=== PATIENT | female | born 1995 | race Caucasian/White ===

== ENCOUNTER 2016-09-13 08:26 | Inpatient (IN) | payer OTHER ==
[2016-09-13 08:32] VITALS: BMI 34.7
--- NOTE | 2016-09-13 08:40 | PDOC ---
History of Present Illness - General History Source: Patient Exam Limitations: No Limitations - History of Present Illness Initial Comments: 09/13/16 09:04 The patient is a 21 year old female, A1 (ectopic) with a significant past medical history of asthma, who presents to the emergency department with right flank pain around 2 am this morning. She describes her pain as suddenly onset, waking her up from sleep, sharp / stabbing sensation that is constant in nature. She notes that the pain waxes and wains in severity, rating it a 9/10 at its worse and a 3/10 at is best. She also notes that movement and taking a deep breath exacerbates her pain. She also reports nausea and multiple episodes of vomit associated with her chief complaint, that is nonbloody and nobilious in nature. The patient denies chest pain, shortness of breath, headache and dizziness. Denies fever, chills, diarrhea and constipation. Denies dysuria, frequency, urgency and hematuria. LMP: 08/28/2016 Allergies: Seasonal allergies Past surgical history: . Social history: Cigarette use (20 daily). No alcohol or drug use reported <Nima Pichardo - Last Filed: 09/13/16 11:58> <Joshua Fountain - Last Filed: 09/13/16 15:31> - General Chief Complaint: Pain, Acute Stated Complaint: RT SIDE PAIN Time Seen by Provider: 09/13/16 08:38 Past History <Nima Pichardo - Last Filed: 09/13/16 11:58> - Past Medical History Asthma: Yes - Surgical History Abdominal Surgery: Yes - Reproductive History (#): 2 Para: 1 - Immunization History Td Vaccination: Yes Immunization Up to Date: Yes - Psycho/Social/Smoking Cessation Hx Anxiety: No Suicidal Ideation: No Smoking Status: Yes Smoking History: Current every day smoker Have you smoked in the past 12 months: Yes Number of Cigarettes Smoked Daily: 20 Information on smoking cessation initiated: No 'Breaking Loose' booklet given: 12/18/15 Hx Alcohol Use: No Drug/Substance Use Hx: No Substance Use Type: None <Joshua Fountain - Last Filed: 09/13/16 15:31> - Past Medical History Allergies/Adverse Reactions: Allergies Allergy/AdvReac Type Severity Reaction Status Date / Time No Known Allergies Allergy Verified 09/13/16 08:32 Home Medications: Ambulatory Orders NK [No Known Home Medication] 12/18/15 Review of Systems - Review of Systems Able to Perform ROS?: Yes Constitutional: No: Chills, Fever Respiratory: No: Cough, Shortness of Breath Cardiac (ROS): No: Chest Pain ABD/GI: Yes: Nausea, Vomiting. No: Constipated, Diarrhea : Yes: Flank Pain. No: Dysuria, Frequency, Hematuria Integumentary: No: Rash All Other Systems: Reviewed and Negative <Joshua Fountain - Last Filed: 09/13/16 15:31> *Physical Exam - Vital Signs Last Vital Signs Temp Pulse Resp BP Pulse Ox 98 F 96 H 18 115/63 100 09/13/16 08:28 09/13/16 08:28 09/13/16 08:28 09/13/16 08:28 09/13/16 08:28 - Physical Exam Comments: 09/13/16 09:05 GENERAL: The patient is awake, alert, and fully oriented, in no acute distress. HEAD: Normal with no signs of trauma. EYES: Pupils equal, round and reactive to light, extraocular movements intact, sclera anicteric, conjunctiva clear with no pallor. ENT: Ears normal, nares patent, oropharynx clear without exudates. Moist mucous membranes. NECK: Normal range of motion, supple without lymphadenopathy, JVD, or masses. LUNGS: Breath sounds equal, clear to auscultation bilaterally. No wheeze/ crackles. HEART: Regular rate and rhythm, normal S1 and S2 without murmur or rub. ABDOMEN: (+) Diffused tenderness aroung the right abdomen, negative McBurneys sign. Soft/nondistended. BS wnl. No guarding or rebound. No palpable masses. No hepatosplenomegaly. MUSCULOSKELETAL: (+) Positive right CVA tenderness EXTREMITIES: Normal range of motion, no edema. No clubbing or cyanosis. No cords , erythema, or tenderness. NEUROLOGICAL: Cranial nerves II through XII grossly intact. Normal speech, normal gait. PSYCH: Normal mood, normal affect. SKIN: Warm, Dry, normal turgor, no rashes or lesions noted. <Nima Pichardo - Last Filed: 09/13/16 11:58> - Vital Signs Last Vital Signs Temp Pulse Resp BP Pulse Ox 98 F 96 H 18 115/63 100 09/13/16 08:28 09/13/16 08:28 09/13/16 08:28 09/13/16 08:28 09/13/16 08:28 <Joshua Fountain - Last Filed: 09/13/16 15:31> ED Treatment Course - LABORATORY CBC & Chemistry Diagram: 09/13/16 09:10 09/13/16 09:10 - RADIOLOGY Radiograph Interpretation: 09/13/16 12:00 CT abdomen and pelvis without contrast Reviewed by: Dr. Ray Desouza Impression: There is a gallstone within the gallbladder. No evidence of urinary tract calculi, mass lesions or obstructive uropathy. No evidence of acute pathology within the abdomen or pelvis. <Nima Pichardo - Last Filed: 09/13/16 11:58> - LABORATORY CBC & Chemistry Diagram: 09/13/16 09:10 09/13/16 09:10 <AlfonsodrissJoshua - Last Filed: 09/13/16 15:31> Medical Decision Making - Medical Decision Making 09/13/16 11:58 Upon reevaluation the pain is now in the right upper quadrant and right mid quadrant with tenderness to the right upper quadrant. Will do bedside ultrasound as per CT abdomen findings. <Nima Pichardo - Last Filed: 09/13/16 11:58> - Medical Decision Making 09/13/16 08:48 A portion of this note was documented by scribe services under my direction. I have reviewed the details of the note, within reason, and agree with the documentation with the following case summary and management plan written by me. Healthy 21-year-old female LMP 08/28 presents with acute onset of right flank pain that awoke her from sleep around 2 AM. Constant pain, waxing and waning in severity, began in the right flank and now radiating toward the groin. No associated urinary complaints, positive associated nonbloody nonbilious vomiting , had normal nonbloody bowel movement last night. Pain with deep inspiration but no chest pain or shortness of breath or palpitations, no signs or symptoms of DVT. She is a smoker, she is on oral contraceptives. Vital signs as noted, heart rate now 84 Comfortable at this time, well-appearing and ambulating in the ED Heart and lungs are clear + R cvat and R sided lateral tenderness with some guarding, no rebound. no RLQ or RUQ ttp no edema/calf ttp 21-year-old female with acute onset of right flank pain now radiating to the groin, associated nausea and vomiting. Presentation seems most consistent with or GI etiology, question renal colic versus infection, less likely colitis or biliary colic. Low suspicion for cardiopulmonary process, despite being a smoker on OCPs this is not clinically consistent with PE. Check labs, urinalysis, urine Pain control, nausea control, IV fluids Will likely require imaging. No known history of renal colic reassess 09/13/16 10:02 White count 11.2, chemistries within normal limits including LFTs and lipase. Urinalysis with 1+ blood, 2 red blood cells, 5 white blood cells, no . Will do CT imaging to rule out stone, reassess. 09/13/16 12:16 CT shows a single gallstone but no other pathology within the abdomen or pelvis , no CT evidence of cholecystitis. On re-evaluation, the pain has not moved to the RUQ/R middle abdomen. On bedside ultrasound, there is a visible gallstone with positive sonographic Lugo's. Will obtain official right upper quadrant ultrasound 09/13/16 14:20 Official ultrasound confirms stone with thick gallbladder wall, ? HIDA if question if cholecystitis remains. Pt still in pain but not wanting to stay for more evaluation, but ultimately failed PO trial and remained tender with guarding in the RUQ. Will admit for pain control of intractable biliary colic, further imaging, and surgical consultation. Pt does not have established PMD (in transition to Dr. Rehman) so will admit to hospitalist. 09/13/16 15:29 Accepted for inpatient med/surg by Dr. Valencia, will consult gen surg. <Joshua Fountain - Last Filed: 09/13/16 15:31> *DC/Admit/Observation/Transfer - Attestations Scribe Attestion: 09/13/16 09:06 Documentation prepared by Nima Pichardo, acting as medical transcription for Joshua Fountain MD <Nima Pichardo - Last Filed: 09/13/16 11:58> - Discharge Dispostion Admit: Yes <Joshua Fountain - Last Filed: 09/13/16 15:31> Diagnosis at time of Disposition: Right flank pain, Biliary colic - Discharge Dispostion Condition at time of disposition: Fair - Referrals Referrals: Kristofer Rehman MD [Primary Care Provider] -
[2016-09-13] MEDS ORDERED: ONDANSETRON 4 MG/2 ML VIAL IVPB ONE (08:46)
[2016-09-13] MEDS ORDERED: HYDROmorphone HCL CARPU-JECT 1 MG/1 ML DISP.SYRIN IVPUSH ONE (08:46)
[2016-09-13] MEDS ORDERED: SODIUM CHLORIDE 1,000 ML IV ONE (08:46)
[2016-09-13] MEDS ORDERED: HYDROmorphone HCL CARPU-JECT 1 MG/1 ML DISP.SYRIN ONE (09:10)
[2016-09-13] MEDS ORDERED: ONDANSETRON 4 MG/2 ML VIAL ONE (09:11)
[2016-09-13 09:18] LABS: BASOPHIL 0.8 % (0-2.0); EOSINOPHIL 0.5 % (0-4.5); MCHC 33.9 g/dl (32.0-36.0); MEAN CELL VOLUME 82.6 fl (80-96); MEAN PLT VOLUME 7.8 fl (7.5-11.1); NEUTROPHILS 81.1 % (42.8-82.8); PLATELET COUNT 266 K/MM3 (134-434); RDW 13.1 % (11.6-15.6); WHITE BLOOD COUNT 11.2 K/mm3 (4.0-10.0)
[2016-09-13 09:24] LABS: URINE APPEARANCE CLEAR; URINE BILIRUBIN NEGATIVE (NEGATIVE); URINE COLOR YELLOW; URINE GLUCOSE (UA) NEGATIVE (NEGATIVE); URINE KETONE NEGATIVE (NEGATIVE); URINE NITRITE NEGATIVE (NEGATIVE); URINE PROTEIN NEGATIVE (NEGATIVE); URINE UROBILINOGEN NEGATIVE E.U./dl (0.2-1.0)
[2016-09-13 09:25] LABS: URINE BLOOD 1+ (NEGATIVE); URINE LEUK ESTERASE 1+ (NEGATIVE)
[2016-09-13 09:27] LABS: URINE MUCUS RARE; URINE RBC 2 /hpf (0-3); URINE WBC 5 /hpf (3-5)
[2016-09-13 09:35] LABS: ALBUMIN 4.2 g/dl (3.4-5.0); ANION GAP 9 (8-16); CALCIUM 9.7 mg/dL (8.5-10.1); CO2 27 mmol/L (21-32); CREATININE 0.9 mg/dL (0.55-1.02); GLUCOSE,RANDOM 100 mg/dL (74-106); SGOT/AST 13 U/L (15-37)
[2016-09-13 09:51] LABS: ALK PHOS 70 U/L (45-117); BILIRUBIN,TOTAL 0.8 mg/dL (0.2-1.0); SGPT/ALT 20 U/L (12-78); TOT PROT 7.2 g/dl (6.4-8.2)
[2016-09-13] MEDS ORDERED: traMADol HCL 50 MG TABLET PO ONE (13:21)
[2016-09-13] MEDS ORDERED: traMADol HCL 50 MG TABLET ONE (13:32)
[2016-09-13] MEDS ORDERED: PIPERACILLIN/TAZOB 3.375 GM/50 ML PRE-DOCKED IVPB ONE (16:29)
[2016-09-13] MEDS ORDERED: PIPERACILLIN/TAZOB 3.375 GM 50 ML IVPB ONE (16:38)
--- NOTE | 2016-09-13 17:30 | PN ---
Teaching Attending Note Name of Resident: Sarai Martinez ATTENDING PHYSICIAN STATEMENT I saw and evaluated the patient. I reviewed the resident's note and discussed the case with the resident. I agree with the resident's findings and plan as documented. SUBJECTIVE: This is a 21 year old woman with a history of asthma, ectopic who presents to the ER complaining of RUQ abdominal pain that awoke her from sleep around 2am this morning. She has nausea nad vomiting and denies fever and chills. OBJECTIVE: Vital Signs Period Temp Pulse Resp BP Sys/Osborn Pulse Ox Last 24 Hr 98 F 67-96 16-18 110-119/60-78 98-100 HEART: S1S2, RRR LUNGS: Clear ABDOMEN: Soft, RUQ tenderness, non-distended, normal BS EXTREMITIES: No edema ASSESSMENT AND PLAN: This is a 21 year old woman with a history of asthma, ectopic who presented to the ER with RUQ abdominal pain that awoke her from sleep around 2am this morning. US showed cholelithiasis with thickening of the gallbladder wall. 1. Acute cholecystitis - NPO - IV fluid - Levaquin, Flagyl - Morphine as needed for pain - Zofran as needed for nausea - Surgery consult 2. Asthma - Stable
[2016-09-13] MEDS ORDERED: ONDANSETRON 4 MG/2 ML VIAL IVPB PRN (17:52)
[2016-09-13] MEDS ORDERED: morphine CARPU-JECT 2 MG/1 ML DISP.SYRIN IVPUSH PRN (17:52)
[2016-09-13] MEDS ORDERED: LEVOFLOXACIN 500 MG IVPB 100 ML IVPB ONE ×2 (17:58→18:12)
[2016-09-13] MEDS: SODIUM CHLORIDE 1,000 ML IV SCH ×2 (18:11→20:59)
[2016-09-13] MEDS ORDERED: METRONIDAZOLE 500 MG PREMIXED 100 ML IVPB ONE (18:12)
--- NOTE | 2016-09-13 18:43 | HP ---
CHIEF COMPLAINT: Right side abdominal pain PCP: Dr. Kristofer Rheman HISTORY OF PRESENT ILLNESS: Patient is a 21 year old female with a PMHx of asthma who presented with right upper quadrant abdominal pain that started at 0230 last night. Patient reports the pain was sudden, waking her up from sleep. The pain was described as a stabbing pain radiating to the right lower back with no alleviating factors. The pain was constant and exacerbated with any type of movement. Severity of the pain was 9/10 at it's worse. Pain is associated with nausea and nonbloody nonbilious vomiting x4. Patient reports never having symptoms like this except for abdominal cramping. She reports no change in her diet and no recent weight loss. She denies any NSAID use or recent travel. Otherwise, patient denies diarrhea, constipation, change in bowel habits, hematuria, melena, dysuria, urinary frequency or urgency, flank pain, shortness of breath, chest pain, palpitations, headache, dizziness. ER course was notable for: (1) U/S (2) Zosyn IV (3) Ultram and IV Fluids Recent Travel: Denies PAST MEDICAL HISTORY: Asthma PAST SURGICAL HISTORY: Social History: Smokin PPD for >5 years Alcohol: Denies Drugs: Denies Family History: Denies Allergies: No Known Allergies Allergy (Verified 09/13/16 08:32) HOME MEDICATIONS: Home Medications Medication Instructions Recorded NK [No Known Home Medication] 12/18/15 REVIEW OF SYSTEMS CONSTITUTIONAL: Absent: fever, chills, diaphoresis, generalized weakness, malaise, loss of appetite, weight change HEENT: Absent: rhinorrhea, nasal congestion, throat pain, throat swelling, difficulty swallowing, mouth swelling, ear pain, eye pain, visual changes CARDIOVASCULAR: Absent: chest pain, syncope, palpitations, irregular heart rate, lightheadedness , peripheral edema RESPIRATORY: Absent: cough, shortness of breath, dyspnea with exertion, orthopnea, wheezing, stridor, hemoptysis GASTROINTESTINAL: abdominal pain, nausea, vomiting Absent: abdominal distension, diarrhea, constipation, melena, hematochezia GENITOURINARY: Absent: dysuria, frequency, urgency, hesitancy, hematuria, flank pain, genital pain MUSCULOSKELETAL: back pain Absent: myalgia, arthralgia, joint swelling, neck pain SKIN: Absent: rash, itching, pallor HEMATOLOGIC/IMMUNOLOGIC: Absent: easy bleeding, easy bruising, lymphadenopathy, frequent infections ENDOCRINE: Absent: unexplained weight gain, unexplained weight loss, heat intolerance, cold intolerance NEUROLOGIC: Absent: headache, focal weakness or paresthesias, dizziness, unsteady gait, seizure, mental status changes, bladder or bowel incontinence PSYCHIATRIC: Absent: anxiety, depression, suicidal or homicidal ideation, hallucinations. Vital Signs - 24 hr 09/13/16 09/13/16 09/13/16 08:28 11:58 13:37 Temperature 98 F Pulse Rate 96 H Pulse Rate [ 81 67 Apical] Respiratory 18 17 16 Rate Blood Pressure 115/63 Blood Pressure 110/60 119/78 [Right Arm] O2 Sat by Pulse 100 99 98 Oximetry (%) 09/13/16 18:45 Temperature 98.2 F Pulse Rate Pulse Rate [ 61 Apical] Respiratory 18 Rate Blood Pressure Blood Pressure 106/65 [Right Arm] O2 Sat by Pulse 97 Oximetry (%) PHYSICAL EXAMINATION GENERAL: Awake, alert, and fully oriented, in no acute distress. HEAD: Normal with no signs of trauma. EYES: Pupils equal, round and reactive to light, extraocular movements intact, sclera anicteric, conjunctiva clear. EARS, NOSE, THROAT: Oropharynx clear without exudates. Moist mucous membranes. NECK: Normal range of motion, supple without lymphadenopathy. LUNGS: Breath sounds equal, clear to auscultation bilaterally. No wheezes, and no crackles. No accessory muscle use. HEART: Regular rate and rhythm, normal S1 and S2 without murmur, rub or gallop. ABDOMEN: Soft, tenderness upon palpation of right upper quadrant with mild right lower tenderness. (+) guarding, (+) Lugo's sign. No hepatomegaly or splenomegaly. MUSCULOSKELETAL: No CVA tenderness. UPPER EXTREMITIES: No peripheral edema. LOWER EXTREMITIES: No peripheral edema. NEUROLOGICAL: Normal speech. Normal gait. No facial drooping SKIN: Warm, dry, normal turgor, no rashes or lesions noted, normal capillary refill. Laboratory Results - last 24 hr 09/13/16 09/13/16 09/13/16 08:56 09:10 09:10 WBC 11.2 H RBC 4.97 Hgb 13.9 Hct 41.0 MCV 82.6 MCHC 33.9 RDW 13.1 Plt Count 266 MPV 7.8 Neutrophils % 81.1 Lymphocytes % 13.3 D Monocytes % 4.3 Eosinophils % 0.5 Basophils % 0.8 Sodium 141 Potassium 4.3 Chloride 105 Carbon Dioxide 27 Anion Gap 9 BUN 10 Creatinine 0.9 D Creat Clearance w eGFR > 60 Random Glucose 100 D Calcium 9.7 Total Bilirubin 0.8 AST 13 L ALT 20 Alkaline Phosphatase 70 Total Protein 7.2 Albumin 4.2 Lipase 128 Urine Color Yellow Urine Appearance Clear Urine pH 6.0 Urine Protein Negative Urine Glucose (UA) Negative Urine Ketones Negative Urine Blood 1+ H Urine Nitrite Negative Urine Bilirubin Negative Urine Urobilinogen Negative Ur Leukocyte Esterase 1+ H Urine RBC 2 Urine WBC 5 Ur Epithelial Cells Rare Urine Mucus Rare Urine HCG, Qual Negative U/S (09/13/16): Cholelithiasis with thick walled gallbladder. Abdominal CT (09/13/16): No evidence of acute pathology ASSESSMENT/PLAN: Patient is a 21 year old female with a PMHx of asthma who presented for RUQ abdominal pain that began suddenly. U/S done and patient was found to have possible acute cholecystitis. Patient admitted for further monitoring and management. Acute Cholecystitis -U/S revealed cholelithiasis -CT Abdo negative -HIDA scan ordered -Levofloxacin 500mg IV daily ordered -Flagyl 500mg Q8H ordered -IV Normal Saline @125mls/hr -Morphine 2mg IV Q4H PRN -Zofran 4mg PRN -NPO -Surgery consult placed -Will likely need surgery once HIDA scan complete Asthma-Controlled -On no home medication F/E/N -IV NS @125mls/hr -Electrolytes wnl -NPO Prophylaxis -Low risk. EAM. SCD's for DVT Disposition -HIDA scan pending. Surgery consult placed Visit type - Emergency Visit Emergency Visit: Yes ED Registration Date: 09/13/16 Care time: The patient presented to the Emergency Department on the above date and was hospitalized for further evaluation of their emergent condition. - New Patient This patient is new to me today: Yes Date on this admission: 09/14/16 - Critical Care Critical Care patient: No
[2016-09-13] MEDS: morphine CARPU-JECT 2 MG/1 ML DISP.SYRIN IVPUSH PRN (21:00)
[2016-09-13] MEDS: METRONIDAZOLE 500 MG PREMIXED 100 ML IVPB SCH (21:00)
[2016-09-14] MEDS ORDERED: ONDANSETRON 4 MG/2 ML VIAL IVPUSH ONE (00:07)
[2016-09-14] MEDS: METRONIDAZOLE 500 MG PREMIXED 100 ML IVPB SCH ×2 (01:51→10:18)
[2016-09-14] MEDS: morphine CARPU-JECT 2 MG/1 ML DISP.SYRIN IVPUSH PRN ×4 (01:57→23:58)
[2016-09-14] MEDS: SODIUM CHLORIDE 1,000 ML IV SCH (06:26)
[2016-09-14 07:44] LABS: MCH 28.1 pg (25.7-33.7); MCHC 33.9 g/dl (32.0-36.0); MEAN CELL VOLUME 83.1 fl (80-96); MEAN PLT VOLUME 7.8 fl (7.5-11.1); PLATELET COUNT 197 K/MM3 (134-434); WHITE BLOOD COUNT 6.3 K/mm3 (4.0-10.0)
[2016-09-14 08:03] LABS: ALK PHOS 57 U/L (45-117); ANION GAP 8 (8-16); BILIRUBIN,TOTAL 1.1 mg/dL (0.2-1.0); CALCIUM 8.2 mg/dL (8.5-10.1); CO2 26 mmol/L (21-32); CREATININE 0.8 mg/dL (0.55-1.02); GLUCOSE,RANDOM 89 mg/dL (74-106); SGOT/AST 10 U/L (15-37); SGPT/ALT 15 U/L (12-78); TOT PROT 5.3 g/dl (6.4-8.2)
[2016-09-14 08:11] LABS: INR 1.21 (0.82-1.09); PROTHROMBIN TIME (PATIENT) 13.4 SEC (9.98-11.88)
--- NOTE | 2016-09-14 08:23 | PN ---
Physical Exam: SUBJECTIVE: Patient seen and examined by me at bedside. No overnight events noted. Patient reports her abdominal pain is better than yesterday and is no longer in the left lower quadrant area but remains in the right upper quadrant. Otherwise, patient denies fever, chills, shortness of breath, chest pain, palpitations, dizziness, diarrhea, constipation. OBJECTIVE: Vital Signs Period Temp Pulse Resp BP Sys/Osborn Pulse Ox Last 24 Hr 97.7 F-98.2 F 57-91 18-18 102-116/46-67 97-99 GENERAL: Awake, alert, and fully oriented, in no acute distress. LUNGS: Breath sounds equal, clear to auscultation bilaterally. No wheezes, and no crackles. No accessory muscle use. HEART: Regular rate and rhythm, normal S1 and S2 without murmur, rub or gallop. ABDOMEN: Soft, tenderness upon palpation of right upper quadrant (+) guarding, ( +) Lugo's sign. EXTREMITIES: No peripheral edema. NEUROLOGICAL: Normal speech. No facial drooping Laboratory Results - last 24 hr 09/14/16 06:52 WBC 6.3 D RBC 4.15 Hgb 11.7 D Hct 34.5 D MCV 83.1 MCHC 33.9 RDW 13.0 Plt Count 197 D MPV 7.8 Active Medications Generic Name Dose Route Start Last Admin Trade Name Freq PRN Reason Stop Dose Admin Sodium Chloride 1,000 mls @ 125 mls/hr 09/13/16 18:00 09/14/16 06:26 Normal Saline - IV 125 mls/hr ASDIR YVETTE Administration Metronidazole 100 mls @ 100 mls/hr 09/13/16 18:00 09/14/16 01:51 Flagyl 500mg Premixed Ivpb - IVPB 100 mls/hr Q8H-IV YVETTE Administration Levofloxacin 100 mls @ 100 mls/hr 09/14/16 10:00 Levaquin 500 Mg Premixed Ivpb - IVPB DAILY YVETTE Morphine Sulfate 2 mg 09/13/16 18:00 09/14/16 01:57 Morphine Injection - IVPUSH 2 mg Q4H PRN Administration PAIN U/S (09/13/16): Cholelithiasis with thick walled gallbladder. Abdominal CT (09/13/16): No evidence of acute pathology ASSESSMENT/PLAN: Patient is a 21 year old female with a PMHx of asthma who presented for RUQ abdominal pain that began suddenly. U/S done and patient was found to have possible acute cholecystitis. Patient admitted for further monitoring and management. Acute Cholecystitis -U/S revealed cholelithiasis -CT Abdo negative -Continue Levofloxacin 500mg IV daily day #2 -Continue Flagyl 500mg Q8H ordered day #2 -IV Normal Saline @125mls/hr -Morphine 2mg IV Q4H PRN -Zofran 4mg PRN -NPO -Scheduled for surgery this afternoon Asthma-Controlled -On no home medication F/E/N -IV NS @125mls/hr -Electrolytes wnl -NPO Prophylaxis -Low risk. EAM. SCD's for DVT Disposition -Scheduled for surgery this afternoon. Depending on post op, patient might be staying one more night. Visit type - Emergency Visit Emergency Visit: Yes ED Registration Date: 09/13/16 Care time: The patient presented to the Emergency Department on the above date and was hospitalized for further evaluation of their emergent condition. - New Patient This patient is new to me today: No - Critical Care Critical Care patient: No
[2016-09-14] MEDS ORDERED: LEVOFLOXACIN 500 MG IVPB 100 ML IVPB SCH (10:00)
--- NOTE | 2016-09-14 10:18 | CONSULT ---
- Consultation REQUESTING PROVIDER: Dr. Avila CONSULT REQUEST: We have been asked to surgically evaluate this patient for gallbladder stones. PCP:Uziel Valencia MD HISTORY OF PRESENT ILLNESS: 21 yo female with complaints of nausea and emesis( yellowish), upper abd pain. Her symptoms have improved since admission. The patient was unaware that she had gallstones but did have intermittent pain in the past which resolved on its own and never has had a workup for this pain. She desnies any fever, chills dysuria/hematuria. PMHx: ashtma as a child PSHx: c section Home Medications Medication Instructions Recorded NK [No Known Home Medication] 12/18/15 Allergies Allergy/AdvReac Type Severity Reaction Status Date / Time No Known Allergies Allergy Verified 09/13/16 08:32 REVIEW OF SYSTEMS: CONSTITUTIONAL: Absent: fever, chills CARDIOVASCULAR: Absent: chest pain, syncope, palpitations, irregular heart rate RESPIRATORY: Absent: cough, shortness of breath GASTROINTESTINAL: Absent: abdominal pain to upper abd with nausea and emesis GENITOURINARY: Absent: dysuria, hematuria MUSCULOSKELETAL: Absent: joint swelling, back pain, neck pain HEMATOLOGIC/IMMUNOLOGIC: Absent: easy bleeding, easy bruising NEUROLOGIC: Absent: headache, paresthesias, dizziness PSYCHIATRIC: Absent: anxiety, depression, suicidal or homicidal ideation, hallucinations. PHYSICAL EXAM: GENERAL: Awake, alert HEAD: Normal with no signs of trauma. EYES: sclera anicteric, conjunctiva clear. NECK: Normal ROM, supple without lymphadenopathy, JVD, or masses. LUNGS: Clear to auscultation bilat anteriorly. No wheezes, and no crackles. No accessory muscle use. HEART: Regular rate and rhythm. No murmurs ABDOMEN: Soft, not distended, mild RUQ tenderness to palpation. No rebound. MUSCULOSKELETAL: Normal ROM at all joints. No bony deformities or tenderness. No CVA tenderness. UPPER EXTREMITIES: 2+ pulses, warm, well-perfused. No cyanosis. Cap refill <2 seconds. No peripheral edema. LOWER EXTREMITIES: 2+ pulses, warm, well-perfused. No calf tenderness. No peripheral edema. NEUROLOGICAL: Normal speech, gait not observed. PSYCH: Cooperative. Good eye contact. Appropriate mood and affect. Vital Signs Temperature 98 F 09/14/16 08:38 Pulse Rate 61 09/14/16 08:38 Respiratory Rate 20 09/14/16 08:38 Blood Pressure 108/57 09/14/16 08:38 O2 Sat by Pulse Oximetry (%) 99 09/13/16 20:30 Lab Results WBC 6.3 K/mm3 (4.0-10.0) D 09/14/16 06:52 RBC 4.15 M/mm3 (3.60-5.2) 09/14/16 06:52 Hgb 11.7 GM/dL (10.7-15.3) D 09/14/16 06:52 Hct 34.5 % (32.4-45.2) D 09/14/16 06:52 MCV 83.1 fl (80-96) 09/14/16 06:52 MCHC 33.9 g/dl (32.0-36.0) 09/14/16 06:52 RDW 13.0 % (11.6-15.6) 09/14/16 06:52 Plt Count 197 K/MM3 (134-434) D 09/14/16 06:52 Sodium 144 mmol/L (136-145) 09/14/16 06:52 Potassium 3.9 mmol/L (3.5-5.1) 09/14/16 06:52 Chloride 110 mmol/L (98-107) H 09/14/16 06:52 Carbon Dioxide 26 mmol/L (21-32) 09/14/16 06:52 Anion Gap 8 (8-16) 09/14/16 06:52 BUN 8 mg/dL (7-18) 09/14/16 06:52 Creatinine 0.8 mg/dL (0.55-1.02) 09/14/16 06:52 Random Glucose 89 mg/dL (74-106) 09/14/16 06:52 Calcium 8.2 mg/dL (8.5-10.1) L 09/14/16 06:52 INR 1.21 (0.82-1.09) H 09/14/16 06:52 CMP Sodium 144 mmol/L (136-145) 09/14/16 06:52 Potassium 3.9 mmol/L (3.5-5.1) 09/14/16 06:52 Chloride 110 mmol/L (98-107) H 09/14/16 06:52 Carbon Dioxide 26 mmol/L (21-32) 09/14/16 06:52 Anion Gap 8 (8-16) 09/14/16 06:52 BUN 8 mg/dL (7-18) 09/14/16 06:52 Creatinine 0.8 mg/dL (0.55-1.02) 09/14/16 06:52 Creat Clearance w eGFR > 60 (>60) 09/14/16 06:52 Random Glucose 89 mg/dL (74-106) 09/14/16 06:52 Calcium 8.2 mg/dL (8.5-10.1) L 09/14/16 06:52 Total Bilirubin 1.1 mg/dL (0.2-1.0) H D 09/14/16 06:52 AST 10 U/L (15-37) L D 09/14/16 06:52 ALT 15 U/L (12-78) D 09/14/16 06:52 Alkaline Phosphatase 57 U/L (45-117) 09/14/16 06:52 Total Protein 5.3 g/dl (6.4-8.2) L D 09/14/16 06:52 Albumin 3.0 g/dl (3.4-5.0) L D 09/14/16 06:52 Lipase 128 U/L (73-393) 09/13/16 09:10 US-cholelithiasis with thickened GB, no CBD diltation CT scan: no evidence of bowel obstrutction/collection/free air Problem List - Problems (1) Gallstones Assessment/Plan: pt with cholelithiasis, for lap milind today she remains npo with improved abd pain Continue IV abx D/w Elbert Bedoya bili slighty elevated with normal LFTS, no CBD diltation Code(s): K80.20 - CALCULUS OF GALLBLADDER W/O CHOLECYSTITIS W/O OBSTRUCTION Visit type - Case Type Case Type: ED Admission - Emergency Emergency Visit: Yes ED Registration Date: 09/13/16 Care time: The patient presented to the Emergency Department on the above date and was hospitalized for further evaluation of their emergent condition. - New patient This patient is new to me today: Yes Date on this admission: 09/14/16 - Critical Care Critical Care patient: No
--- NOTE | 2016-09-14 13:10 | PN ---
Teaching Attending Note Name of Resident: Sarai Martinez ATTENDING PHYSICIAN STATEMENT I saw and evaluated the patient. I reviewed the resident's note and discussed the case with the resident. I agree with the resident's findings and plan as documented. SUBJECTIVE: Abdominal pain and nausea are better. OBJECTIVE: Vital Signs Period Temp Pulse Resp BP Sys/Osborn Pulse Ox Last 24 Hr 97.7 F-98.2 F 57-91 16-20 102-119/46-78 97-99 HEART: S1S2, RRR LUNGS: Clear ABDOMEN: Obese, soft, RUQ tenderness, non-distended, normal BS EXTREMITIES: No edema ASSESSMENT AND PLAN: This is a 21 year old woman with a history of asthma, ectopic who presented to the ER with RUQ abdominal pain that awoke her from sleep around 2am this morning. US showed cholelithiasis with thickening of the gallbladder wall. 1. Acute cholecystitis - Continue NPO, IV fluid, Levaquin, Flagyl, morphine as needed for pain, Zofran as needed for nausea - Plan for lap milind today 2. Asthma - Stable 3. Obesity
[2016-09-14] MEDS ORDERED: MIDAZOLAM HCL 2 MG/2 ML SINGLE DOSE VIAL ONE (13:18)
--- NOTE | 2016-09-14 13:32 | PN ---
Progress Note (short form) - Note Progress Note: Attending Surgeon Patient seen and evaluated; concur w/ a/p as outlined by SEAMUS Caruos; consent obtained; r/b/t/a's d/w the patient who wishes to proceed. Kee Avila MD FACS
[2016-09-14] MEDS ORDERED: PROPOFOL 20 ML ONE (13:46)
[2016-09-14] MEDS ORDERED: ROCURONIUM BROMIDE 50 MG/5 ML VIAL ONE (13:46)
[2016-09-14] MEDS ORDERED: DEXAMETHASONE SOD PHOSPHATE 4 MG/1 ML VIAL ONE (14:04)
[2016-09-14] MEDS ORDERED: LIDOCAINE HCL 2% (20ML MULTI-DOSE VIAL) NR ONE (14:04)
[2016-09-14] MEDS ORDERED: BUPIVACAINE HCL/PF 0.5% (5MG/ML) 10 ML VIAL ONE (14:05)
[2016-09-14] MEDS ORDERED: GLYCOPYRROLATE 0.2 MG/1 ML VIAL ONE (14:40)
[2016-09-14] MEDS ORDERED: NEOSTIGMINE METHYLSULFATE 0.5 MG/ML - 10 ML MDV ONE (14:40)
[2016-09-14] MEDS ORDERED: BUPIVACAINE HCL/PF 0.5% (5MG/ML) 10 ML VIAL IJ ONE (14:43)
--- NOTE | 2016-09-14 15:03 | SURG ---
Surgery Poultry Scientist Note Poultry Scientist: Rajeev Connor PA-C Date of Service: 09/14/16 Diagnosis: cholecystitis / cholelithiasis Procedure: Laparoscopic cholecystectomy I was present for the entirety of the operative procedure. For further detail, please refer to operative report. Visit type - Case Type Case Type: ED Admission - Emergency Emergency Visit: Yes ED Registration Date: 09/13/16 Care time: The patient presented to the Emergency Department on the above date and was hospitalized for further evaluation of their emergent condition. - New patient This patient is new to me today: Yes Date on this admission: 09/14/16
--- NOTE | 2016-09-14 15:06 | OP ---
Operative Note - Note: Operative Date: 09/14/16 Pre-Operative Diagnosis: acute cholecystitis;cholelithiasis Operation: lap milind Findings: acute cholecystitis;cholelithiasis Post-Operative Diagnosis: Same as Pre-op Surgeon: Kee Avila Regulatory Specialist: Rajeev Connor Anesthesia: General Specimens Removed: gallbladder and contents Estimated Blood Loss (mls): 20
[2016-09-14] MEDS ORDERED: ACETAMINOPHEN 1000 MG/100 ML VIAL (NON FORMULARY) IVPB PRN (15:13)
[2016-09-14] MEDS ORDERED: SODIUM CHLORIDE 1,000 ML IV SCH (15:18)
[2016-09-14] MEDS ORDERED: ACETAMINOPHEN INJECTION 100 ML IVPB ONE (15:31)
[2016-09-14] MEDS ORDERED: ACETAMINOPHEN 1000 MG/100 ML VIAL (NON FORMULARY) IVPB ONE (15:39)
--- NOTE | 2016-09-15 07:52 | PN ---
Progress Note (short form) - Note Progress Note: POD #1 Alert. Doing well. No acute events since surgery per RN notes. C/o mild incisional tenderness but pain controlled well via PRN meds. She is OOB and ambulating unassisted. Tolerating PO clears. Using her incentive spirometer as directed. Denies n/v/f/c, CP or SOB. Last Vital Signs Temp Pulse Resp BP Pulse Ox 98.7 F 74 20 94/44 96 09/15/16 02:00 09/15/16 02:00 09/15/16 02:00 09/15/16 02:00 09/14/16 21:00 PE Gen: alert. NAD ABD: all surgical ports intact. No hematoma. Note: her right lateral port has 1 vertical mattress suture Problem List - Problems (1) Cholecystitis with cholelithiasis Assessment/Plan: POD #1 s/p lap milind Advance diet as tolerated Cleared for discharge from a surgical standpoint. Will need PO pain management prior to dc Above discussed with Dr. Avila and agrees. Code(s): K80.10 - CALCULUS OF GALLBLADDER W CHRONIC CHOLECYST W/O OBSTRUCTION
--- NOTE | 2016-09-15 09:14 | PN ---
Teaching Attending Note Name of Resident: Sarai Martinez ATTENDING PHYSICIAN STATEMENT I saw and evaluated the patient. I reviewed the resident's note and discussed the case with the resident. I agree with the resident's findings and plan as documented. SUBJECTIVE: Patient has some discomfort in RUQ and right shoulder. OBJECTIVE: Vital Signs Period Temp Pulse Resp BP Sys/Osborn Pulse Ox Last 24 Hr 97.6 F-98.7 F 56-89 16-20 94-142/44-66 96-100 HEART: S1S2, RRR LUNGS: Clear ABDOMEN: Obese, soft, non-tender, non-distended, normal BS EXTREMITIES: No edema ASSESSMENT AND PLAN: This is a 21 year old woman with a history of asthma, ectopic who presented to the ER with RUQ abdominal pain that awoke her from sleep around 2am this morning. US showed cholelithiasis with thickening of the gallbladder wall. 1. Acute cholecystitis - s/p lap milind 09/14 2. Asthma - Stable 3. Obesity with BMI 34.7 4. Disposition - Plan for discharge today
--- NOTE | 2016-09-15 09:23 | DS ---
Physical Exam: SUBJECTIVE: Patient seen and examined by me at bedside. No overnight events noted. POD #1 s/p cholecystectomy. No complications and patient tolerated full diet without nausea or vomiting. Patient having adequate pain control with pain medications and passing gas. She does complain of right shoulder pain but was explained by surgeon that it is in relation to the air in her diaphragm from the surgery. Otherwise, patient denies fever, chills, nausea, vomiting, chest pain, palpitations, shortness of breath. OBJECTIVE: Vital Signs Period Temp Pulse Resp BP Sys/Osborn Pulse Ox Last 24 Hr 97.6 F-98.7 F 56-89 16-20 94-142/44-66 96-100 PHYSICAL EXAM GENERAL: Awake, alert, and fully oriented, in no acute distress. LUNGS: Breath sounds equal, clear to auscultation bilaterally. No wheezes, and no crackles. No accessory muscle use. HEART: Regular rate and rhythm, normal S1 and S2 without murmur, rub or gallop. ABDOMEN: Soft, Obese, tenderness upon palpation of midabdominal pain due to incision sites. Incision sites c/d/i EXTREMITIES: No peripheral edema. NEUROLOGICAL: Normal speech. No facial drooping LABS Laboratory Results - last 24 hr 09/14/16 11:03 Blood Type A POSITIVE Antibody Screen Negative U/S (09/13/16): Cholelithiasis with thick walled gallbladder. Abdominal CT (09/13/16): No evidence of acute pathology HOSPITAL COURSE: Patient is a 21 year old female with a PMHx of asthma who presented for RUQ abdominal pain that began suddenly. U/S done and patient was found to have possible acute cholecystitis. Patient was admitted and placed on IV antibiotics , flagyl and Levaquin, and put on NPO. Patient the next day (09/14/16) went to the OR for laprascopic cholecystectomy and tolerated procedure well with no complications. That same day patient tolerated full diet without nausea and vomiting. Fluids and IV antibiotics discontinued. Patient was ambulating on her own and had adequate pain control with medications. Patient was recommended to follow up with the surgeon in 2 weeks for follow up and to follow up with her PCP within two weeks. She was counseled on diet and lifestyle. Patient verbalized understanding. Patient stable for discharge to go home and will be picked up by family member. Date of Admission:09/13/16 Date of Discharge: 09/15/16 Minutes to complete discharge: 35 Discharge Summary Reason For Visit: BILIARY COLIC; RIGHT FLANK PAIN Current Active Problems Biliary colic (Acute) Cholecystitis with cholelithiasis (Acute) Gallstones (Acute) Right flank pain (Acute) Condition: Stable - Instructions Diet, Activity, Other Instructions: Dr. Avila Discharge Instructions Dear Alicia, Post Operative Instructions Physical activity Resume your normal everyday activity as tolerated no heavy lifting or exercise until seen by your surgeon. You may walk unlimited amounts of and climb stairs. You may resume driving the car when you feel safe and comfortable behind the wheel. Wound care If you have a bandage, leave it on, and keep dry for 48 - 72 hours. After that time discard the outer bandage. If there are tapes on the skin under the outer bandage, leave them in place. They will peel off in the next 7 to 10 days. Do Not peel them off. You may shower 2 days after surgery. If there are tapes present on the skin, they can get wet. Diet There are no dietary restrictions. Eat healthy, high-fiber foods. Drink 6 to 8 glasses of liquid each day. This will assist in keeping your bowels are regular. Pain management You may take Tylenol or acetaminophen or Ibuprofen (for example, Motrin, Advil etc.) Any pain prescription medication ordered should be taken as prescribed for moderate to severe pain. Call Dr. Avila for any of the following: Severe pain not relieved by medication Fever of 101 or higher Excessive bleeding or drainage on dressing Inability to urinate Call the office at [phone] for a post operative appointment in 7 - 10 days. Referrals: Kristofer Rehman MD [Primary Care Provider] - Kee Avila MD [Staff Physician] - Disposition: HOME - Home Medications Comprehensive Discharge Medication List: Ambulatory Orders Tramadol HCl 50 mg PO Q6H PRN #20 tablet MDD 4 09/14/16 This patient is new to me today: No Emergency Visit: Yes ED Registration Date: 09/13/16 Care time: The patient presented to the Emergency Department on the above date and was hospitalized for further evaluation of their emergent condition. Critical Care patient: No - Discharge Referral Referred to [facility] Med P.C.: No
[2016-09-15 09:41] VITALS: BP 120/60; PULSE 70; TEMP 98.2
--- NOTE | 2016-09-16 14:51 | PATH ---
Surgical Pathology Report Patient Name: NORMA CHARLES Med. Rec. #: [id number] /Age/Gender: 1995 (Age: 21) / F Account: [id number] Location: [address] [place] [address]/[facility] Taken: 09/14/2016 Received: 09/15/2016 Reported: 09/16/2016 Physicians: Christian Vang MD Specimen(s) Received GALLBLADDER Clinical History Cholecystitis Final Diagnosis GALLBLADDER, CHOLECYSTECTOMY: CHRONIC CHOLECYSTITIS, CHOLESTEROLOSIS, AND CHOLELITHIASIS. Electronically Signed Kingston Zapata M.D. Gross Description Received in formalin, labeled "gallbladder," is a 10.5 x 2.2 x 2.0 cm. gallbladder with a 0.2 cm. in length portion of cystic duct attached. The outer surface is ramsay jameson and varies from smooth to shaggy. The lumen contains green, tenacious bile as well as multiple yellow, irregular to fragmented choleliths ranging from 0.1-1.5 cm in greatest dimension. The mucosa is dark green with focal erosions. The wall of the gallbladder averages 0.1 cm. in thickness. B2B Sales Manager sections are submitted in one cassette. 09/15/201609/15/2016
--- NOTE | 2016-09-17 08:32 | OP ---
DATE OF OPERATION: 09/14/2016 PREOPERATIVE DIAGNOSIS: Acute cholecystitis and cholelithiasis. POSTOPERATIVE DIAGNOSIS: Acute cholecystitis and cholelithiasis. PROCEDURE: Laparoscopic cholecystectomy. SURGEON: Kee Avila MD [employer] COMPANY DRIVER: Rajeev Connor PA-C ANESTHESIA: General. OPERATIVE FINDINGS: There was acute cholecystitis and cholelithiasis. There was normal anatomy in the triangle of Calot. The rest of the findings were unremarkable. DESCRIPTION OF PROCEDURE: The patient was placed on the operating table in supine position, and after the induction of general anesthesia and placement of sequential compression devices on the patients lower extremities, the abdomen was prepped with ChloraPrep and draped in sterile fashion. A time-out was taken, and pneumoperitoneum was established using a Veress needle above the umbilicus. Once 15 mmHg pressure was obtained, two lateral 5-mm ports were placed as well as a subxiphoid 12-mm port. The gallbladder was placed on cephalad and lateral traction, and dissection was begun in the triangle of Calot, where the peritoneum over the neck of the gallbladder was opened using electrocautery. The cystic duct was bluntly dissected after identification proximally and distally for length. The cystic artery and the adherent lymph node to it were similarly identified and dissected proximally and distally for length. The critical view of safety was taken, and then, the duct was divided between large hemoclips using the EndoShears, and the artery in the same fashion. Hemostasis was verified, and then, the gallbladder was removed from the liver bed in a retrograde fashion using electrocautery. Prior to removal from the edge of the liver, hemostasis again was verified, and then, the gallbladder was removed from the edge of the liver, placed in an EndoCatch, and brought out through the subxiphoid port, and sent to Pathology. Pneumoperitoneum was reestablished, hemostasis verified again, and then, all ports were removed under laparoscopic visualization without evidence of bleeding from the port sites. All port sites were infiltrated with 0.5% Marcaine, and the skin edges reapproximated with 4-0 Biosyn in a subcuticular continuous fashion. Steri-Strips and Band-Aid dressings were placed, and the procedure terminated at this point, and the patient was aroused from general anesthesia and transferred to the post-anesthesia care unit in stable condition, awake and alert. ESTIMATED BLOOD LOSS: 20 mL. REPLACEMENTS: Crystalloid. DRAINS: None. SPECIMENS: Gallbladder and contents to Pathology. I, Kee Avila, was physically present in the operating room from the time the patient was placed on the operating table until she was transferred to the post-anesthesia care unit in my accompaniment. MD LIANNA Betts/[id number]
== END 2016-09-15 10:13 | disposition home or self-care (01) | DRG 263 ==
LOC: JER 08:26 → JERBED 15:30 → J5S 19:04
PROVIDERS: ADMIT Internal Medicine; ATTEND Internal Medicine
PROC: 0FT44ZZ Resection of Gallbladder, Percutaneous Endoscopic Approach (ICD-10-PCS; principal; 2016-09-14 12:00)
DX: K80.12 Calculus of gallbladder with acute and chronic cholecystitis without obstruction (principal); J45.909 Unspecified asthma, uncomplicated; E66.9 Obesity, unspecified; Z68.34 Body mass index [BMI] 34.0-34.9, adult; F17.210 Nicotine dependence, cigarettes, uncomplicated; K80.50 Calculus of bile duct without cholangitis or cholecystitis without obstruction
CPT/HCPCS: 36415; 74176-TC; 76705-TC; 80053; 81003; 81015; 83690; 84703; 85025; 85027; 85610; 86850; 86900; 86901; 88304-TC; 94010; 94760; 99284-25

== ENCOUNTER 2018-10-21 22:29 | Emergency (ER) | payer OTHER ==
[2018-10-21 22:42] VITALS: TEMP 98.6; BMI 35.6
--- NOTE | 2018-10-21 23:04 | PDOC ---
History of Present Illness - General Chief Complaint: Pain Stated Complaint: ABD PAIN/FEVER Time Seen by Provider: 10/21/18 22:59 - History of Present Illness Initial Comments: 10/21/18 23:01 23 yo F with h/o obesity, asthma, choleycstitis s/p lap milind (09/24) who p/w RUQ abdominal pain. Patient reports 2 days of sharp, intermittent, non exertional, non pleuritic, RUQ radiating to right flank. Pain now persistent within past 24 hours. No identifiable alleviators or triggers. Endorses 2 episodes of NBNB emesis 10/21/18. Also endorses multiple episodes of loose stools. No BM 10/21/18. Denies h/o chronic NSAID use. Patient denies MENDOZA, vision change, palpitations, cough, wheezing, orthopena, PND , leg swelling/pain, F,C, CP, SOB, vaginal bleeding, urinary complaints, hematuria, BPR, diarrhea, constipation, lightheadedness, weakness, sensory changes. PMHx: as noted above ROS: as noted SHx: Denies Etoh, IVDA, tobacco use Allergies: NKDA Past History - Past Medical History Allergies/Adverse Reactions: Allergies Allergy/AdvReac Type Severity Reaction Status Date / Time No Known Allergies Allergy Verified 10/21/18 22:42 Home Medications: Ambulatory Orders Cephalexin Monohydrate [Keflex -] 500 mg PO Q8H #21 capsule MDD 3 tab 10/21/18 Ranitidine HCl [Zantac] 150 mg PO BID #30 tablet MDD 2 tab 10/21/18 Asthma: Yes - Surgical History Abdominal Surgery: Yes - Reproductive History (#): 2 Para: 1 - Immunization History Td Vaccination: Yes Immunization Up to Date: Yes - Suicide/Smoking/Psychosocial Hx Smoking Status: Yes Smoking History: Current some day smoker Have you smoked in the past 12 months: Yes Number of Cigarettes Smoked Daily: 20 Information on smoking cessation initiated: No 'Breaking Loose' booklet given: 12/18/15 Hx Alcohol Use: No Drug/Substance Use Hx: No Substance Use Type: None Hx Substance Use Treatment: No Review of Systems - Review of Systems Comments:: 10/21/18 23:02 GENERAL/CONSTITUTIONAL: No fever or chills. No weakness. HEAD, EYES, EARS, NOSE AND THROAT: No change in vision. No ear pain or discharge. No sore throat. CARDIOVASCULAR: No chest pain or shortness of breath RESPIRATORY: No cough, wheezing, or hemoptysis. GASTROINTESTINAL:+ Abdominal pain, nausea, vomiting. No diarrhea or constipation. GENITOURINARY: No dysuria, frequency, or change in urination. MUSCULOSKELETAL: No joint or muscle swelling or pain. No neck or back pain. SKIN: No rash NEUROLOGIC: No headache, vertigo, loss of consciousness, or change in strength/ sensation. ENDOCRINE: No increased thirst. No abnormal weight change HEMATOLOGIC/LYMPHATIC: No anemia, easy bleeding, or history of blood clots. ALLERGIC/IMMUNOLOGIC: No hives or skin allergy. *Physical Exam - Vital Signs Last Vital Signs Temp Pulse Resp BP Pulse Ox 98.6 F 91 H 20 114/76 99 10/21/18 22:40 10/21/18 22:40 10/21/18 22:40 10/21/18 22:40 10/21/18 22:40 - Physical Exam Comments: 10/21/18 23:03 GENERAL: Awake, alert, and fully oriented, in no acute distress HEAD: No signs of trauma, normocephalic, atraumatic EYES: PERRLA, EOMI, sclera anicteric, conjunctiva clear ENT: Auricles normal inspection, hearing grossly normal, nares patent, oropharynx clear without exudates. Moist mucosa NECK: Normal ROM, supple, no lymphadenopathy, JVD, or masses LUNGS: No distress, speaks full sentences, clear to auscultation bilaterally HEART: Regular rate and rhythm, normal S1 and S2, no murmurs, rubs or gallops, peripheral pulses normal and equal bilaterally. ABDOMEN: + RUQ and epigastria ttp. Soft, NDS, normoactive bowel sounds. No guarding, no rebound. No masses. Neg CVA ttp. EXTREMITIES : Normal inspection, Normal range of motion, no edema. No clubbing or cyanosis. NEUROLOGICAL: Cranial nerves II through XII grossly intact. Normal speech, normal gait, no focal sensorimotor deficits SKIN: Warm, Dry, normal turgor, no rashes or lesions noted ED Treatment Course - LABORATORY CBC & Chemistry Diagram: 10/21/18 23:05 10/21/18 23:05 Medical Decision Making - Medical Decision Making 10/21/18 23:03 23 yo F with h/o obesity, asthma, choleycstitis s/p lap milind (09/24) who p/w RUQ abdominal pain. Vitals wnl, AF, A&OX3. Will consider gastritis, esophagitis , PUD, biliary dz. pancreatitis, colitis, nephrolithiasis. Provide analgesic control, reassess. ED Course: 10/21/18 23:20 Maloox, Famotidine, Tylenol, NS 10/21/18 23:53 Laboratory Tests 10/21/18 10/21/18 23:01 23:05 WBC 10.3 H Hgb 13.9 Hct 40.9 D Plt Count 269 D Urine Color Yellow Urine Appearance Cloudy Urine Ketones Trace H Urine Blood Trace Urine Nitrite Negative Ur Leukocyte Esterase 2+ H Urine WBC (Auto) 39 Urine RBC (Auto) 3 Urine HCG, Qual Negative 10/22/18 00:05 Laboratory Tests 10/21/18 10/21/18 10/21/18 23:01 23:05 23:05 WBC 10.3 H Hgb 13.9 Hct 40.9 D Plt Count 269 D BUN 10.6 Creatinine 0.9 Lipase 180 Serum , Qual Negative 10/22/18 00:52 RUQ U/S: Unremarkable Patient treated with Keflex for UTI Stable for d/c with return precautions Advised to f/u PMD *DC/Admit/Observation/Transfer Diagnosis at time of Disposition: RUQ abdominal pain - Discharge Dispostion Condition at time of disposition: Stable Decision to Admit order: No - Prescriptions Prescriptions: Cephalexin Monohydrate [Keflex -] 500 mg PO Q8H #21 capsule MDD 3 tab Ranitidine HCl [Zantac] 150 mg PO BID #30 tablet MDD 2 tab - Referrals Referrals: Edwin Fountain MD [Staff Physician] - - Patient Instructions Printed Discharge Instructions: DI for Epigastric Pain Additional Instructions: Please return to the emergency department with any new or worsening symptoms or concerns. 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 Take Zantac twice a day as needed. Please take Keflex three times a day. - Post Discharge Activity Forms/Work/School Notes: Back to Work
[2018-10-21 23:10] LABS: EPI CELLS 8.7 /HPF (0-5/HPF); HYALINE CASTS 28 /lpf (0-8); PH,URINE 5.5 (5.0-8.0); URINE APPEARANCE CLOUDY; URINE BILIRUBIN NEGATIVE (NEGATIVE); URINE COLOR YELLOW; URINE GLUCOSE (UA) NEGATIVE (NEGATIVE); URINE KETONE TRACE (NEGATIVE); URINE LEUK ESTERASE 2+ (NEGATIVE); URINE NITRITE NEGATIVE (NEGATIVE); URINE PROTEIN NEGATIVE (NEGATIVE); URINE RBC 3 /hpf (0-4); URINE WBC 39 /hpf (0-5)
[2018-10-21 23:11] LABS: HCG,QUALITATIVE URINE Negative
[2018-10-21] MEDS ORDERED: ACETAMINOPHEN 1000 MG/100 ML VIAL (NON FORMULARY) IVPB ONE (23:19)
[2018-10-21] MEDS ORDERED: ONDANSETRON 4 MG/2 ML VIAL IVPUSH ONE (23:19)
[2018-10-21] MEDS ORDERED: SODIUM CHLORIDE 1,000 ML IV STA (23:19)
[2018-10-21] MEDS ORDERED: SODIUM CHLORIDE 0.9% 500 ML INFUS.BAG IV ONE (23:19)
[2018-10-21] MEDS ORDERED: FAMOTIDINE 20 MG/50 ML IVPB 20 MG/50 ML MG IVPB ONE ×2 (23:19→23:24)
[2018-10-21] MEDS ORDERED: MAG HYDROX/AL HYDROX/SIMETH 30 ML UNIT-DOSE CUP PO ONE (23:19)
[2018-10-21 23:24] LABS: HEMOGLOBIN 13.9 GM/dL (10.7-15.3)
[2018-10-21] MEDS ORDERED: MAG HYDROX/AL HYDROX/SIMETH 30 ML UNIT-DOSE CUP ONE (23:24)
[2018-10-21] MEDS ORDERED: ACETAMINOPHEN INJECTION 100 ML IVPB ONE (23:24)
[2018-10-21] MEDS ORDERED: ONDANSETRON 4 MG/2 ML VIAL ONE (23:24)
[2018-10-21 23:44] LABS: BASO % 0.6 % (0-2.0); EOS % 2.2 % (0-4.5); HEMATOCRIT 40.9 % (32.4-45.2); LYMPH % 26.1 % (8-40); MEAN CELL VOLUME 82.3 fl (80-96); MEAN PLT VOLUME 7.9 fl (7.5-11.1); MONO % 5.5 % (3.8-10.2); NEUT % 65.6 % (42.8-82.8); PLATELET COUNT 269 K/MM3 (134-434); RBC 4.97 M/mm3 (3.60-5.2); RDW 12.5 % (11.6-15.6); WHITE BLOOD COUNT 10.3 K/mm3 (4.0-10.0)
[2018-10-21] MEDS ORDERED: CEFTRIAXONE 1,000 MG in DEXTROSE 5%-WATER - 50 ML IVPB ONE (23:44)
[2018-10-21 23:49] LABS: ALBUMIN 3.9 g/dl (3.4-5.0); BILIRUBIN,TOTAL 0.6 mg/dL (0.2-1); BLOOD UREA NITROGEN 10.6 mg/dL (7-18); CALCIUM 8.7 mg/dL (8.5-10.1); CREATININE 0.9 mg/dL (0.55-1.3); POTASSIUM 3.6 mmol/L (3.5-5.1); TOT PROT 6.9 g/dl (6.4-8.2)
--- NOTE | 2018-10-22 00:21 | PDOC ---
Documentation entered by Jorge Rodney SCRIBE, acting as scribe for Chel Gonsales MD. Chel Gonsales MD: This documentation has been prepared by the Rashaun ayala Daniel, SCRIBE, under my direction and personally reviewed by me in its entirety. I confirm that the documentation accurately reflects all work, treatment, procedures, and medical decision making performed by me. Attending Attestation - Resident Resident Name: Jonathan Hampton - ED Attending Attestation I have performed the following: I have examined & evaluated the patient, The case was reviewed & discussed with the resident, I agree w/resident's findings & plan - HPI HPI: 10/21/18 23:21 The patient is a 23 year old female with a past medical history of asthma, obesity, and cholecystectomy (2 years ago) here today for evaluation of abdominal pain. The patient reports that she has had 2 days of right upper quadrant pain that radiates to the right flank intermittently and is described as sharp, intermittent, non exertional, and has no triggers or alleviators. She also notes 2 episodes of vomiting and multiple episodes of loose stools yesterday with no bowel movement yesterday. Patient denies headache, lightheadedness. Denies fever, chills. Denies chest pain, shortness of breath. Allergies: NKA - Physicial Exam PE: 10/22/18 00:19 Agree with resident exam - Medical Decision Making 10/22/18 00:20 Pt has a UTI; labs normal; sono RUQ normal. Pt will be discharged home with keflex TID x 1 week 10/22/18 01:21 Patient Name: NORMA CHARLES THIS IS A PRELIMINARY REPORT FROM IMAGING AUTHORIZER DATE OF SERVICE: 2018-10-21 23:38:20 IMAGES: 31 EXAM: ULTRASOUND ABDOMEN INCOMPLETE Cholecystectomy. Unremarkable liver, right kidney and visualized aorta and pancreas. Normal common duct diameter, 4 mm. 10/22/18 01:30 Pt has RUQ and Right pelvic pain. She has a UTI. Pt has no flank pain. She will go home with abx. Stable for d/c
[2018-10-22] MEDS ORDERED: CEFTRIAXONE 1 GM/50 ML BAG ONE (00:50)
[2018-10-22 01:00] VITALS: BP 96/56; PULSE 72
== END 2018-10-22 01:32 | disposition home or self-care (01) ==
LOC: JER 22:29
PROC: 3E033GC Introduction of Other Therapeutic Substance into Peripheral Vein, Percutaneous Approach (ICD-10-PCS; principal; 2018-10-21)
PROC: 3E033NZ Introduction of Analgesics, Hypnotics, Sedatives into Peripheral Vein, Percutaneous Approach (ICD-10-PCS; 2018-10-21)
PROC: 3E03329 Introduction of Other Anti-infective into Peripheral Vein, Percutaneous Approach (ICD-10-PCS; 2018-10-21)
PROC: 3E033GC Introduction of Other Therapeutic Substance into Peripheral Vein, Percutaneous Approach (ICD-10-PCS; 2018-10-21)
DX: N39.0 Urinary tract infection, site not specified (principal)
CPT/HCPCS: 36415; 76705-TC; 80053; 81003; 83690; 84703; 85025; 87086; 96365; 96367; 96375; 99283-25; J0131

== ENCOUNTER 2018-10-30 14:11 | Emergency (ER) | payer OTHER ==
--- NOTE | 2018-10-30 14:28 | PDOC ---
Rapid Medical Evaluation Chief Complaint: Vomiting/Diarrhea Time Seen by Provider: 10/30/18 14:27 Medical Evaluation: Allergies Allergy/AdvReac Type Severity Reaction Status Date / Time No Known Allergies Allergy Verified 10/21/18 22:42 10/30/18 14:27 HPI: vomiting and diarrhea x1 day PE: No gross deficits ORDERS: Belly labs and urine Discharge Disposition - Diagnosis Nausea and vomiting - Referrals - Patient Instructions - Post Discharge Activity
[2018-10-30 14:30] VITALS: BP 106/71; PULSE 78; TEMP 98.6; BMI 35.6
[2018-10-30] MEDS ORDERED: KETOROLAC TROMETHAMINE 30 MG/1 ML VIAL IVPUSH ONE (14:57)
[2018-10-30] MEDS ORDERED: SODIUM CHLORIDE 1,000 ML IV STA (14:57)
[2018-10-30] MEDS ORDERED: ONDANSETRON 4 MG/2 ML VIAL IVPUSH ONE (14:57)
--- NOTE | 2018-10-30 15:02 | PDOC ---
History of Present Illness - General Chief Complaint: Pain Stated Complaint: VOMITING/ HEADACHE Time Seen by Provider: 10/30/18 14:27 History Source: Patient - History of Present Illness Timing/Duration: reports: constant Quality: reports: severe Past History - Past Medical History Allergies/Adverse Reactions: Allergies Allergy/AdvReac Type Severity Reaction Status Date / Time No Known Allergies Allergy Verified 10/30/18 14:28 Home Medications: Ambulatory Orders Cephalexin Monohydrate [Keflex -] 500 mg PO Q8H #21 capsule MDD 3 tab 10/21/18 Ranitidine HCl [Zantac] 150 mg PO BID #30 tablet MDD 2 tab 10/21/18 Asthma: Yes COPD: No - Surgical History Abdominal Surgery: Yes - Reproductive History (#): 2 Para: 1 - Immunization History Td Vaccination: Yes Immunization Up to Date: Yes - Suicide/Smoking/Psychosocial Hx Smoking Status: Yes Smoking History: Never smoked Have you smoked in the past 12 months: Yes Number of Cigarettes Smoked Daily: 20 'Breaking Loose' booklet given: 12/18/15 Hx Alcohol Use: No Drug/Substance Use Hx: No Substance Use Type: None Hx Substance Use Treatment: No Review of Systems - Review of Systems Constitutional: Yes: Weakness. No: Chills, Fever ABD/GI: Yes: Diarrhea, Nausea, Vomiting, Abdominal cramping : No: Dysuria *Physical Exam - Vital Signs Last Vital Signs Temp Pulse Resp BP Pulse Ox 98.6 F 78 18 106/71 99 10/30/18 14:28 10/30/18 14:28 10/30/18 14:28 10/30/18 14:28 10/30/18 14:28 - Physical Exam General Appearance: Yes: Appropriately Dressed, Mild Distress HEENT: positive: Normal Voice Neck: positive: Supple Respiratory/Chest: negative: Respiratory Distress Gastrointestinal/Abdominal: positive: Normal Bowel Sounds, Tender (poorly localized tto R side of abd), Soft. negative: Distended, Guarding, Rebound Musculoskeletal: negative: CVA Tenderness Integumentary: positive: Dry, Warm Neurologic: positive: Fully Oriented, Alert, Normal Mood/Affect ED Treatment Course - LABORATORY CBC & Chemistry Diagram: 10/30/18 15:35 10/30/18 15:35 Medical Decision Making - Medical Decision Making 10/30/18 15:00 23 yo morbidly obesed F, s/p rosales vaz 2016 presents with nausea, vomiting, diarrhea 2 days. Complaining of generalized weakness now. No bright blood per rectum, fever or chills. No recent travel, sick contacts, no unusual food. Patient is currently on Keflex for UTI that was diagnosed 10/21 after patient presented with RUQ pain. Of note, labs, ultrasound and urine culture were negative see exam Gastroenteritis vs cdif (currently on abx for UTI-neg ucx) vs appy -pain control -zofran -IVF -labs -CT 10/30/18 19:07 Signed out to HERMILO Hart pending CT. Mild leukocytosis on labs. 80 suly / + LE on UA but will hold off on abx as no dysuria. Will send ucx. Pt's pain presently controlled *DC/Admit/Observation/Transfer Diagnosis at time of Disposition: Nausea and vomiting - Referrals - Patient Instructions - Post Discharge Activity
[2018-10-30] MEDS ORDERED: ONDANSETRON 4 MG/2 ML VIAL ONE (15:41)
[2018-10-30] MEDS ORDERED: KETOROLAC TROMETHAMINE 30 MG/1 ML VIAL ONE (15:41)
[2018-10-30 16:28] LABS: BASO % 0.5 % (0-2.0); EOS % 2.3 % (0-4.5); HEMATOCRIT 44.8 % (32.4-45.2); HEMOGLOBIN 15.1 GM/dL (10.7-15.3); LYMPH % 7.9 % (8-40); MCH 27.9 pg (25.7-33.7); MCHC 33.7 g/dl (32.0-36.0); MEAN CELL VOLUME 82.6 fl (80-96); MEAN PLT VOLUME 7.9 fl (7.5-11.1); MONO % 3.3 % (3.8-10.2); PLATELET COUNT 270 K/MM3 (134-434); RBC 5.43 M/mm3 (3.60-5.2); RDW 13.1 % (11.6-15.6); WHITE BLOOD COUNT 12.6 K/mm3 (4.0-10.0)
[2018-10-30 16:29] LABS: EPI CELLS 13.1 /HPF (0-5/HPF); HYALINE CASTS 10 /lpf (0-8); URINE APPEARANCE TURBID; URINE BACTERIA 80.1 /hpf (NEGATIVE); URINE BILIRUBIN NEGATIVE (NEGATIVE); URINE COLOR YELLOW; URINE GLUCOSE (UA) NEGATIVE (NEGATIVE); URINE KETONE NEGATIVE (NEGATIVE); URINE LEUK ESTERASE 1+ (NEGATIVE); URINE NITRITE NEGATIVE (NEGATIVE); URINE PROTEIN NEGATIVE (NEGATIVE); URINE RBC 3 /hpf (0-4); URINE UROBILINOGEN 0.2 mg/dL (0.2-1.0); URINE WBC 12 /hpf (0-5)
[2018-10-30 17:01] LABS: ALBUMIN 4.3 g/dl (3.4-5.0); BILIRUBIN,TOTAL 1.5 mg/dL (0.2-1); BLOOD UREA NITROGEN 11.2 mg/dL (7-18); CALCIUM 9.3 mg/dL (8.5-10.1); CREATININE 0.9 mg/dL (0.55-1.3); POTASSIUM 4.3 mmol/L (3.5-5.1); TOT PROT 7.3 g/dl (6.4-8.2)
--- NOTE | 2018-10-30 19:28 | PDOC ---
*Physical Exam - Vital Signs Last Vital Signs Temp Pulse Resp BP Pulse Ox 98.6 F 78 18 106/71 99 10/30/18 14:28 10/30/18 14:28 10/30/18 14:28 10/30/18 14:28 10/30/18 14:28 - Physical Exam General Appearance: Yes: Appropriately Dressed ED Treatment Course - LABORATORY CBC & Chemistry Diagram: 10/30/18 15:35 10/30/18 15:35 - ADDITIONAL ORDERS Additional order review: Laboratory Results 10/30/18 10/30/18 10/30/18 15:35 15:00 15:00 Sodium 141 Potassium 4.3 Chloride 107 Carbon Dioxide 27 Anion Gap 8 BUN 11.2 Creatinine 0.9 Est GFR (CKD-EPI)AfAm 103.00 Est GFR (CKD-EPI)NonAf 88.87 Random Glucose 86 Calcium 9.3 Total Bilirubin 1.5 H AST 16 ALT 33 Alkaline Phosphatase 99 Total Protein 7.3 Albumin 4.3 Lipase 133 Urine Color Yellow Urine Appearance Turbid Urine pH 5.0 Ur Specific [place] 1.029 Urine Protein Negative Urine Glucose (UA) Negative Urine Ketones Negative Urine Blood 1+ H Urine Nitrite Negative Urine Bilirubin Negative Urine Urobilinogen 0.2 Ur Leukocyte Esterase 1+ H Urine WBC (Auto) 12 Urine RBC (Auto) 3 Urine Casts (Auto) 10 U Epithel Cells (Auto) 13.1 Urine Bacteria (Auto) 80.1 Urine HCG, Qual Negative 10/30/18 15:35 RBC 5.43 H MCV 82.6 MCHC 33.7 RDW 13.1 MPV 7.9 Neutrophils % 86.0 H D Lymphocytes % 7.9 L D Monocytes % 3.3 L Eosinophils % 2.3 Basophils % 0.5 - Medications Given in the ED: ED Medications Discontinued Medications Generic Name Dose Route Start Last Admin Trade Name Freq PRN Reason Stop Dose Admin Sodium Chloride 1,000 mls @ 1,000 mls/hr 10/30/18 14:57 10/30/18 16:01 Normal Saline - IV 10/30/18 15:56 1,000 mls/hr ASDIR STA Administration Ketorolac Tromethamine 30 mg 10/30/18 14:57 10/30/18 16:09 Toradol Injection - IVPUSH 10/30/18 14:58 30 mg ONCE ONE Administration Ondansetron HCl 4 mg 10/30/18 14:57 10/30/18 16:09 Zofran Injection IVPUSH 10/30/18 14:58 4 mg ONCE ONE Administration Medical Decision Making - Medical Decision Making 10/30/18 19:26 patient is feeling better. currently tolerating PO gatorade CT: normal appendix. + enteritis *DC/Admit/Observation/Transfer Diagnosis at time of Disposition: Gastroenteritis - Discharge Dispostion Disposition: HOME - Referrals - Patient Instructions Printed Discharge Instructions: Viral Gastroenteritis Additional Instructions: drink plenty of fluids start a BRAT ( bananas, rice apples toast) follow up with your doctor we will call you if your C. difficile test results are positive return to the ER if symptoms worsen - Post Discharge Activity Forms/Work/School Notes: Back to Work
== END 2018-10-30 20:16 | disposition home or self-care (01) ==
LOC: JER 14:11
PROC: 3E0333Z Introduction of Anti-inflammatory into Peripheral Vein, Percutaneous Approach (ICD-10-PCS; principal; 2018-10-30)
PROC: 3E0337Z Introduction of Electrolytic and Water Balance Substance into Peripheral Vein, Percutaneous Approach (ICD-10-PCS; 2018-10-30)
PROC: 3E033GC Introduction of Other Therapeutic Substance into Peripheral Vein, Percutaneous Approach (ICD-10-PCS; 2018-10-30)
DX: A08.4 Viral intestinal infection, unspecified (principal); E66.9 Obesity, unspecified; Z68.35 Body mass index [BMI] 35.0-35.9, adult
CPT/HCPCS: 36415; 74177-TC; 80053; 81003; 83690; 84703; 85025; 87324; 87449; 96361; 96374; 96375; 99282-25; J7030

== ENCOUNTER 2019-02-06 17:27 | Emergency (ER) | payer OTHER ==
[2019-02-06 17:43] VITALS: TEMP 98.4; BMI 34.7
[2019-02-06] MEDS ORDERED: ONDANSETRON 4 MG/2 ML VIAL IVPUSH ONE (17:44)
[2019-02-06] MEDS ORDERED: KETOROLAC TROMETHAMINE 30 MG/1 ML VIAL IVPUSH ONE (17:44)
--- NOTE | 2019-02-06 17:44 | PDOC ---
Rapid Medical Evaluation Time Seen by Provider: 02/06/19 17:40 Medical Evaluation: Allergies Allergy/AdvReac Type Severity Reaction Status Date / Time No Known Allergies Allergy Verified 10/30/18 14:28 02/06/19 17:41 Pt c/o: upper abd pain radiating to back, no fever, + nausea, no urinary complaints, no med hx, dark stool yesterday Pt on brief exam: vss , floresita upper abd tenderness, mild rt cva tenderness Pt ordered for: urine and labs Pt to proceed to the ED Discharge Disposition - Diagnosis Abdominal pain Qualifiers: Abdominal location: right lower quadrant Qualified Code(s): R10.31 - Right lower quadrant pain - Discharge Dispostion Disposition: HOME Condition at time of disposition: Fair - Referrals - Patient Instructions Additional Instructions: Take Tylenol or Motrin as needed for pain. Follow yard brakeman's instructions for appropriate dosage. 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 Return to the emergency department for any new or worsening symptoms. Thank you very much for choosing us to provide your emergent health care needs. - Post Discharge Activity Work/School Note: Back to Work
[2019-02-06] MEDS ORDERED: KETOROLAC TROMETHAMINE 30 MG/1 ML VIAL ONE (18:13)
[2019-02-06] MEDS ORDERED: ONDANSETRON 4 MG/2 ML VIAL ONE (18:13)
[2019-02-06 18:18] LABS: BASO % 0.7 % (0-2.0); EOS % 2.4 % (0-4.5); HEMATOCRIT 40.4 % (32.4-45.2); HEMOGLOBIN 13.8 GM/dL (10.7-15.3); LYMPH % 18.6 % (8-40); MCHC 34.1 g/dl (32.0-36.0); MEAN CELL VOLUME 82.1 fl (80-96); MEAN PLT VOLUME 7.7 fl (7.5-11.1); MONO % 5.1 % (3.8-10.2); NEUT % 73.2 % (42.8-82.8); PLATELET COUNT 304 K/MM3 (134-434); RBC 4.92 M/mm3 (3.60-5.2); RDW 12.9 % (11.6-15.6)
[2019-02-06 18:23] LABS: EPI CELLS 7.1 /HPF (0-5/HPF); HYALINE CASTS 3 /lpf (0-8); PH,URINE 6.5 (5.0-8.0); URINE APPEARANCE CLOUDY; URINE BACTERIA 623.3 /hpf (NEGATIVE); URINE BILIRUBIN NEGATIVE (NEGATIVE); URINE COLOR YELLOW; URINE GLUCOSE (UA) NEGATIVE (NEGATIVE); URINE KETONE NEGATIVE (NEGATIVE); URINE LEUK ESTERASE TRACE (NEGATIVE); URINE NITRITE NEGATIVE (NEGATIVE); URINE PROTEIN NEGATIVE (NEGATIVE); URINE WBC 8 /hpf (0-5)
[2019-02-06] MEDS ORDERED: morphine CARPU-JECT 4 MG/1 ML DISP.SYRIN IVPUSH ONE (18:29)
[2019-02-06] MEDS ORDERED: morphine SULFATE 4 MG/ML VIAL ONE (18:36)
[2019-02-06] MEDS ORDERED: ACETAMINOPHEN INJECTION 100 ML IVPB ONE (18:44)
[2019-02-06 18:48] LABS: ALBUMIN 4.1 g/dl (3.4-5.0); BILIRUBIN,TOTAL 0.4 mg/dL (0.2-1); CALCIUM 9.4 mg/dL (8.5-10.1); CREATININE 0.8 mg/dL (0.55-1.3); MAGNESIUM 2.5 mg/dL (1.8-2.4); POTASSIUM 3.9 mmol/L (3.5-5.1); TOT PROT 7.1 g/dl (6.4-8.2)
[2019-02-06] MEDS ORDERED: ACETAMINOPHEN 1000 MG/100 ML VIAL (NON FORMULARY) IVPB ONE (19:01)
[2019-02-06 19:28] VITALS: BP 113/62; PULSE 88
[2019-02-06 21:17] LABS: URINE RBC 6.6 /hpf (0-4)
--- NOTE | 2019-02-06 21:18 | PDOC ---
History of Present Illness - General Chief Complaint: Rectal Bleed Stated Complaint: PAIN ON LEFT SIDE, ABD PAIN Time Seen by Provider: 02/06/19 17:40 History Source: Patient Exam Limitations: No Limitations - History of Present Illness Travel History: No Initial Comments: 02/06/19 21:15 HISTORY OF PRESENT ILLNESS: This is a 23-year-old woman denies medical history presents to the emergency department for evaluation of diffuse abdominal pain for "a long time." Patient reports the pain is been intermittent since it initially started up until approximately 2 weeks ago when the pain became constant. Patient reports the pain is worse on the sides of her abdomen radiating to her flanks. She denies fevers or chills and reports Tylenol usage has helped keep her pain under control which is currently 5/10. She reports having nonbilious nonbloody vomiting with intermittent nausea and one episode of bloody stools yesterday. Patient reports she had a bowel movement today which was normal and did not see any blood. She denies straining to move her bowels or trauma. 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 No recent travel or sick contacts. PAST MEDICAL HISTORY: Denies past medical history SURGICAL HISTORY: Denies ALLERGIES: No known drug allergies REVIEW OF SYSTEMS General/Constitutional: Denies fever or chills. Denies weakness, weight change. HEENT: Denies change in vision. Denies ear pain or discharge. Denies sore throat. Cardiovascular: Denies chest pain or shortness of breath. Respiratory: Denies cough, wheezing, or hemoptysis. Gastrointestinal: See HPI Genitourinary: Denies dysuria, frequency, or change in urination. Musculoskeletal: Denies joint or muscle swelling or pain. Denies neck or back pain. Skin and breasts: Denies rash or easy bruising. Neurologic: Denies headache, vertigo, loss of consciousness, or loss of sensation. Psychiatric: Denies depression or anxiety. Endocrine: Denies increased thirst. Denies abnormal weight change. Hematologic/Lymphatic: Denies anemia, easy bleeding, or history of blood clots. Allergic/Immunologic: Denies hives or skin allergy. Denies latex allergy. PHYSICAL EXAM General Appearance: Well-appearing, appropriately dressed. No apparent distress , no intoxication. HEENT: EOMI, PERRLA, normal ENT inspection, normal voice, TMs normal, pharynx normal. No conjunctival pallor. No photophobia, scleral icterus. Neck: Supple. Trachea midline. No tenderness, rigidity, carotid bruit, stridor , lymphadenopathy, or thyromegaly. Respiratory/Chest: Lungs CTAB. No shortness of breath, chest tenderness, respiratory distress, accessory muscle use. No crackles, rales, rhonchi, stridor , wheezing, dullness Cardiovascular: RRR. S1, S2. No JVD, murmur, bradycardia, tachycardia. Vascular Pulses: Dorsalis-Pedis (R): 2+, Dorsalis-Pedis (L): 2+ Gastrointestinal/Abdominal: Normal bowel sounds. Abdomen soft, non-distended. Right lower quadrant tenderness without rebound tenderness. No organomegaly, pulsatile mass, guarding, hernia, hepatomegaly, splenomegaly. Negative psoas and obturator signs. Positive Rovsing sign. Lymphatic: No adenopathy, tenderness. Musculoskeletal/Extremities: Normal inspection. FROM of all extremities, normal capillary refill. Pelvis Stable. No CVA tenderness. No tenderness to extremities, pedal edema, swelling, erythema or deformity. Integumentary: Appropriate color, dry, warm. No cyanosis, erythema, jaundice or rash Neurologic: dogman/woman II-XII intact. Fully oriented, alert. Appropriate mood/affect. Motor strength 5/5. No appreciable EOM palsy, facial droop or sensory deficit. Past History - Past Medical History Allergies/Adverse Reactions: Allergies Allergy/AdvReac Type Severity Reaction Status Date / Time No Known Allergies Allergy Verified 02/06/19 17:43 Home Medications: Ambulatory Orders Cephalexin Monohydrate [Keflex -] 500 mg PO Q8H #21 capsule MDD 3 tab 10/21/18 Ranitidine HCl [Zantac] 150 mg PO BID #30 tablet MDD 2 tab 10/21/18 Asthma: Yes COPD: No - Surgical History Abdominal Surgery: Yes - Reproductive History (#): 2 Para: 1 - Immunization History Td Vaccination: Yes Immunization Up to Date: Yes - Psycho Social/Smoking Cessation Hx Smoking Status: Yes Smoking History: Never smoked Have you smoked in the past 12 months: Yes Number of Cigarettes Smoked Daily: 20 Information on smoking cessation initiated: Yes 'Breaking Loose' booklet given: 12/18/15 Hx Alcohol Use: Yes (occasional) Drug/Substance Use Hx: No Substance Use Type: None Hx Substance Use Treatment: No *Physical Exam - Vital Signs Last Vital Signs Temp Pulse Resp BP Pulse Ox 98.4 F 88 19 113/62 97 02/06/19 17:41 02/06/19 19:27 02/06/19 17:41 02/06/19 19:27 02/06/19 19:27 ED Treatment Course - LABORATORY CBC & Chemistry Diagram: 02/06/19 17:51 02/06/19 17:51 - ADDITIONAL ORDERS Additional order review: Laboratory Results 02/06/19 02/06/19 02/06/19 17:51 15:51 15:51 Sodium 140 Potassium 3.9 Chloride 107 Carbon Dioxide 26 Anion Gap 8 BUN 13.0 Creatinine 0.8 Est GFR (CKD-EPI)AfAm 118.76 Est GFR (CKD-EPI)NonAf 102.47 Random Glucose 112 H Calcium 9.4 Magnesium 2.5 H Total Bilirubin 0.4 AST 12 L ALT 32 Alkaline Phosphatase 89 Total Protein 7.1 Albumin 4.1 Lipase 155 Urine Color Yellow Urine Appearance Cloudy Urine pH 6.5 D Ur Specific [place] 1.022 Urine Protein Negative Urine Glucose (UA) Negative Urine Ketones Negative Urine Blood Negative Urine Nitrite Negative Urine Bilirubin Negative Urine Urobilinogen 1.0 Ur Leukocyte Esterase Trace Urine WBC (Auto) 8 Urine Casts (Auto) 3 U Epithel Cells (Auto) 7.1 Urine Bacteria (Auto) 623.3 Urine HCG, Qual Negative 02/06/19 17:51 RBC 4.92 MCV 82.1 MCHC 34.1 RDW 12.9 MPV 7.7 Neutrophils % 73.2 Lymphocytes % 18.6 D Monocytes % 5.1 Eosinophils % 2.4 Basophils % 0.7 - RADIOLOGY Radiology Studies Ordered: Category Date Time Status ABDOMEN & PELVIS CT WITH CONTR [CT] Stat CT Scan 02/06/19 19:52 Ordered - Medications Given in the ED: ED Medications Discontinued Medications Generic Name Dose Route Start Last Admin Trade Name Freq PRN Reason Stop Dose Admin Acetaminophen 1,000 mg 02/06/19 19:01 02/06/19 19:01 Ofirmev Injection - IVPB 02/06/19 19:02 1,000 mg NOW ONE Administration Ketorolac Tromethamine 30 mg 02/06/19 17:44 02/06/19 19:16 Toradol Injection - IVPUSH 02/06/19 17:45 Not Given ONCE ONE Morphine Sulfate 4 mg 02/06/19 18:29 02/06/19 18:45 Morphine Injection - IVPUSH 02/06/19 18:30 Not Given ONCE ONE Ondansetron HCl 4 mg 02/06/19 17:44 02/06/19 18:52 Zofran Injection IVPUSH 02/06/19 17:45 4 mg ONCE ONE Administration Medical Decision Making - Medical Decision Making 02/06/19 21:17 A/P: 23-year-old woman with right lower quadrant pain constant for 2 weeks Laboratory testing performed at [facility] is unremarkable. CT of the abdomen and pelvis with IV contrast to rule out appendicitis. Tylenol 1 g IV Normal saline 1 L IV bolus Reassess 02/06/19 22:08 CT of the abdomen and pelvis is read by Dr. Desouza: Liver, spleen, pancreas, adrenal glands and kidneys demonstrate no significant abnormalities. There is no evidence of intra-abdominal or retroperitoneal lymphadenopathy or fluid collections. There is no evidence of pneumoperitoneum, bowel obstruction or intra-abdominal abscess. There is no CT evidence of acute appendicitis or diverticulitis. Examination of the pelvis demonstrates an involuted cyst within the left ovary. Free fluid is noted within the cul-de-sac. There is no evidence of pelvic mass, fluid collections or lymphadenopathy. There is no evidence of acute bony pathology. Impression: 1. No evidence of acute appendicitis. 2. Involuting left ovarian cyst with free pelvic fluid. Reevaluation reveals benign abdomen. I discussed the physical exam findings, ancillary test results and final diagnoses with the patient. I answered all of the patient's questions. The patient was satisfied with the care received and felt comfortable with the discharge plan and treatment plan. The patient will call their primary care physician within 24 hours to arrange follow-up and will return to the Emergency Department with any new, persistent or worsening symptoms. Discharge - Discharge Information Problems reviewed: Yes Clinical Impression/Diagnosis: Abdominal pain Qualifiers: Abdominal location: right lower quadrant Qualified Code(s): R10.31 - Right lower quadrant pain Condition: Fair Disposition: HOME - Admission No - Follow up/Referral - Patient Discharge Instructions Additional Instructions: Take Tylenol or Motrin as needed for pain. Follow neurology physician assistant's instructions for appropriate dosage. 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 Return to the emergency department for any new or worsening symptoms. Thank you very much for choosing us to provide your emergent health care needs. - Post Discharge Activity Work/Back to School Note: Back to Work
== END 2019-02-06 22:15 | disposition home or self-care (01) ==
LOC: JER 17:27
PROC: 3E033NZ Introduction of Analgesics, Hypnotics, Sedatives into Peripheral Vein, Percutaneous Approach (ICD-10-PCS; principal; 2019-02-06)
PROC: 3E033GC Introduction of Other Therapeutic Substance into Peripheral Vein, Percutaneous Approach (ICD-10-PCS; 2019-02-06)
DX: R10.31 Right lower quadrant pain (principal); J45.909 Unspecified asthma, uncomplicated
CPT/HCPCS: 36415; 74177-TC; 80053; 81003; 83690; 83735; 84703; 85025; 96374; 96375; 99283-25; J0131

== ENCOUNTER 2020-04-18 18:11 | Emergency (ER) | payer OTHER ==
[2020-04-18 18:49] VITALS: TEMP 98.2; BMI 35.6
[2020-04-18] MEDS ORDERED: KETOROLAC TROMETHAMINE 60 MG/2 ML VIAL IM ONE (21:09)
[2020-04-18] MEDS ORDERED: KETOROLAC TROMETHAMINE 60 MG/2 ML VIAL ONE (21:29)
[2020-04-18 23:22] VITALS: BP 108/49; PULSE 71
== END 2020-04-18 23:10 | disposition home or self-care (01) ==
LOC: JER 18:11
PROC: 3E0233Z Introduction of Anti-inflammatory into Muscle, Percutaneous Approach (ICD-10-PCS; principal; 2020-04-18)
DX: M25.512 Pain in left shoulder (principal)
CPT/HCPCS: 71045-TC-FY; 73030-TC-LT-FY; 84703; 93005; 93010; 93971; 99285-25

== ENCOUNTER 2020-05-27 14:07 | Emergency (ER) | payer OTHER ==
[2020-05-27 14:15] VITALS: BP 117/73; PULSE 98; TEMP 98.1; BMI 35.6
[2020-05-27] MEDS ORDERED: SODIUM CHLORIDE 0.9% 500 ML INFUS.BAG IV ONE (15:40)
[2020-05-27 15:54] LABS: BASO % 0.7 % (0-2.0); EOS % 2.8 % (0-4.5); HEMATOCRIT 37.9 % (32.4-45.2); HEMOGLOBIN 13.2 GM/dL (10.7-15.3); LYMPH % 23.2 % (8-40); MCH 28.3 pg (25.7-33.7); MCHC 34.7 g/dl (32.0-36.0); MEAN CELL VOLUME 81.5 fl (80-96); MEAN PLT VOLUME 7.3 fl (7.5-11.1); MONO % 5.7 % (3.8-10.2); NEUT % 67.6 % (42.8-82.8); PLATELET COUNT 352 K/MM3 (134-434); RBC 4.65 M/mm3 (3.60-5.2); RDW 13.2 % (11.6-15.6)
[2020-05-27 16:15] LABS: POTASSIUM 4.2 mmol/L (3.5-5.1)
[2020-05-27 16:18] LABS: BLOOD UREA NITROGEN 9.3 mg/dL (7-18)
[2020-05-27 16:21] LABS: CREATININE 0.8 mg/dL (0.55-1.3)
[2020-05-27 16:23] LABS: BILIRUBIN,TOTAL 0.7 mg/dL (0.2-1); TOT PROT 6.9 g/dl (6.4-8.2)
[2020-05-27 16:45] LABS: EPI CELLS 33 /uL (0-25.1); HYALINE CASTS 2 /uL (0-3.1); URINE APPEARANCE CLEAR; URINE BACTERIA 310 /uL (0-1359); URINE BILIRUBIN NEGATIVE (NEGATIVE); URINE COLOR YELLOW; URINE GLUCOSE (UA) NEGATIVE (NEGATIVE); URINE KETONE NEGATIVE (NEGATIVE); URINE LEUK ESTERASE NEGATIVE (NEGATIVE); URINE NITRITE NEGATIVE (NEGATIVE); URINE PROTEIN NEGATIVE (NEGATIVE); URINE RBC 38 /uL (0-23.9); URINE UROBILINOGEN 0.2 mg/dL (0.2-1.0); URINE WBC 5 /uL (0-25.8)
== END 2020-05-27 18:21 | disposition home or self-care (01) ==
LOC: JER 14:07
DX: O20.9 Hemorrhage in early pregnancy, unspecified (principal); Z3A.00 Weeks of gestation of pregnancy not specified
CPT/HCPCS: 36415; 76817-TC; 80053; 81003; 84702; 84703; 85025; 86850; 86900; 86901; 87086; 99284-25

== ENCOUNTER 2020-11-28 22:56 | Emergency (ER) | payer OTHER ==
[2020-11-28 22:59] VITALS: BMI 36.2
[2020-11-29] MEDS ORDERED: MAG HYDROX/AL HYDROX/SIMETH 30 ML UNIT-DOSE CUP PO ONE (00:11)
[2020-11-29] MEDS ORDERED: FAMOTIDINE 10 MG TABLET PO ONE (00:11)
[2020-11-29 00:23] LABS: EPI CELLS 8 /uL (0-25.1); HYALINE CASTS 0 /uL (0-3.1); URINE APPEARANCE CLEAR; URINE BACTERIA 20 /uL (0-1359); URINE BILIRUBIN NEGATIVE (NEGATIVE); URINE COLOR YELLOW; URINE GLUCOSE (UA) NEGATIVE (NEGATIVE); URINE KETONE TRACE (NEGATIVE); URINE LEUK ESTERASE NEGATIVE (NEGATIVE); URINE NITRITE NEGATIVE (NEGATIVE); URINE PROTEIN NEGATIVE (NEGATIVE); URINE RBC 15 /uL (0-23.9); URINE WBC 4 /uL (0-25.8)
[2020-11-29] MEDS ORDERED: MAG HYDROX/AL HYDROX/SIMETH 30 ML UNIT-DOSE CUP ONE (00:25)
[2020-11-29] MEDS ORDERED: FAMOTIDINE 10 MG TABLET ONE (00:25)
[2020-11-29 00:28] LABS: HCG,QUALITATIVE URINE NEGATIVE
[2020-11-29] MEDS ORDERED: BUPIVACAINE HCL/PF 0.5% (5MG/ML) 10 ML VIAL ONE (01:35)
[2020-11-29] MEDS ORDERED: LIDOCAINE HCL 2% (20ML MULTI-DOSE VIAL) ONE (01:35)
[2020-11-29] MEDS ORDERED: SODIUM CHLORIDE 0.9% 500 ML INFUS.BAG IV ONE (02:05)
[2020-11-29 03:01] LABS: BASO % 0.7 % (0-2.0); EOS % 3.3 % (0-4.5); HEMOGLOBIN 13.2 GM/dL (10.7-15.3); MCH 28.6 pg (25.7-33.7); MCHC 34.6 g/dl (32.0-36.0); MEAN CELL VOLUME 82.6 fl (80-96); MEAN PLT VOLUME 7.5 fl (7.5-11.1); MONO % 5.6 % (3.8-10.2); NEUT % 64.4 % (42.8-82.8); PLATELET COUNT 260 10^3/uL (134-434); RDW 13.1 % (11.6-15.6); WHITE BLOOD COUNT 10.8 K/mm3 (4.0-10.0)
[2020-11-29 03:29] LABS: ALBUMIN 3.7 g/dl (3.4-5.0); BLOOD UREA NITROGEN 13.1 mg/dL (7-18); CALCIUM 8.7 mg/dL (8.5-10.1)
[2020-11-29 03:33] LABS: CREATININE 0.7 mg/dL (0.55-1.3)
[2020-11-29 03:34] LABS: BILIRUBIN,TOTAL 0.6 mg/dL (0.2-1); TOT PROT 6.7 g/dl (6.4-8.2)
[2020-11-29 07:41] VITALS: BP 91/51; PULSE 68; TEMP 98.8
[2020-11-29] MEDS ORDERED: DOXYCYCLINE HYCLATE 100 MG CAPSULE PO ONE ×2 (10:25→10:38)
[2020-11-29] MEDS ORDERED: CEFTRIAXONE 1 GM/50 ML BAG ONE (10:38)
[2020-11-29] MEDS ORDERED: ONDANSETRON *ODT* 4 MG TABLET SL ONE (12:05)
[2020-11-29] MEDS ORDERED: ONDANSETRON *ODT* 4 MG TABLET ONE (12:17)
== END 2020-11-29 12:50 | disposition home or self-care (01) ==
LOC: JER 22:56
PROC: 3E023GC Introduction of Other Therapeutic Substance into Muscle, Percutaneous Approach (ICD-10-PCS; principal; 2020-11-28)
DX: N83.202 Unspecified ovarian cyst, left side (principal)
CPT/HCPCS: 36415; 74177-TC; 76830-TC; 80053; 81003; 84703; 85025; 87086; 87491; 87591; 99285-25; Q0162

== ENCOUNTER 2021-04-11 21:12 | Emergency (ER) | payer OTHER ==
[2021-04-11 21:17] VITALS: BP 121/81; PULSE 80; TEMP 97.8; BMI 36.2
[2021-04-11] MEDS ORDERED: ACETAMINOPHEN 1000 MG/100 ML BAG IVPB ONE (21:46)
[2021-04-11] MEDS ORDERED: ONDANSETRON 4 MG/2 ML VIAL IVPUSH ONE (21:46)
[2021-04-11] MEDS ORDERED: SODIUM CHLORIDE 0.9% 500 ML INFUS.BAG IV ONE (21:56)
[2021-04-11] MEDS ORDERED: ONDANSETRON 4 MG/2 ML VIAL ONE (22:02)
[2021-04-11] MEDS ORDERED: ACETAMINOPHEN INJECTION 100 ML IVPB ONE (22:02)
[2021-04-11 22:35] LABS: EPI CELLS 25 /uL (0-25.1); HYALINE CASTS 1 /uL (0-3.1); PH,URINE 5.5 (5.0-8.0); URINE APPEARANCE CLEAR; URINE BACTERIA 1253 /uL (0-1359); URINE BILIRUBIN NEGATIVE (NEGATIVE); URINE COLOR YELLOW; URINE GLUCOSE (UA) NEGATIVE (NEGATIVE); URINE KETONE NEGATIVE (NEGATIVE); URINE LEUK ESTERASE NEGATIVE (NEGATIVE); URINE NITRITE NEGATIVE (NEGATIVE); URINE PROTEIN NEGATIVE (NEGATIVE); URINE RBC 19 /uL (0-23.9); URINE UROBILINOGEN 0.2 mg/dL (0.2-1.0); URINE WBC 19 /uL (0-25.8)
[2021-04-11 22:36] LABS: EOS % 3.8 % (0-4.5); HEMATOCRIT 39.2 % (32.4-45.2); HEMOGLOBIN 13.2 GM/dL (10.7-15.3); LYMPH % 26.1 % (8-40); MCH 27.6 pg (25.7-33.7); MCHC 33.7 g/dl (32.0-36.0); MEAN CELL VOLUME 81.9 fl (80-96); MEAN PLT VOLUME 7.3 fl (7.5-11.1); MONO % 6.4 % (3.8-10.2); NEUT % 62.7 % (42.8-82.8); PLATELET COUNT 304 10^3/uL (134-434); RBC 4.79 M/mm3 (3.60-5.2); RDW 12.8 % (11.6-15.6); WHITE BLOOD COUNT 8.4 K/mm3 (4.0-10.0)
[2021-04-11 22:52] LABS: PROTHROMBIN TIME (PATIENT) 11.2 SEC (9.7-13.0)
[2021-04-11 22:53] LABS: CHLORIDE 110 mmol/L (98-107); SODIUM 141 mmol/L (136-145)
[2021-04-11 22:55] LABS: ACTIVATED PTT 28.6 SECONDS (25.2-36.5); CALCIUM 8.5 mg/dL (8.5-10.1)
[2021-04-11 22:56] LABS: ALBUMIN 3.4 g/dl (3.4-5.0); ANION GAP 8 MMOL/L (8-16); BLOOD UREA NITROGEN 8.8 mg/dL (7-18); CO2 24 mmol/L (21-32); GLUCOSE,RANDOM 100 mg/dL (74-106); LIPASE 180 U/L (73-393)
[2021-04-11 22:59] LABS: CREATININE 0.8 mg/dL (0.55-1.3); SGOT/AST 24 U/L (15-37); SGPT/ALT 32 U/L (13-61)
[2021-04-11 23:00] LABS: BILIRUBIN,TOTAL 0.7 mg/dL (0.2-1)
[2021-04-11 23:01] LABS: TOT PROT 6.8 g/dl (6.4-8.2)
[2021-04-11 23:02] LABS: ALK PHOS 82 U/L (45-117)
[2021-04-12] MEDS ORDERED: IBUPROFEN 600 MG TABLET (FP) PO ONE ×2 (02:32→02:37)
== END 2021-04-12 02:48 | disposition home or self-care (01) ==
LOC: JER 21:12
PROC: 3E033GC Introduction of Other Therapeutic Substance into Peripheral Vein, Percutaneous Approach (ICD-10-PCS; principal; 2021-04-11)
DX: N83.201 Unspecified ovarian cyst, right side (principal); R10.84 Generalized abdominal pain
CPT/HCPCS: 36415; 74177-TC; 76830-TC; 80053; 81003; 83690; 84702; 85025; 85610; 85730; 86850; 86900; 86901; 99285-25; C9803; J0131; Q9967; U0003; U0005

== ENCOUNTER 2021-07-05 19:19 | Emergency (ER) | payer OTHER ==
[2021-07-05 19:40] VITALS: BP 132/75; PULSE 90; TEMP 98; BMI 35.2
[2021-07-05] MEDS ORDERED: IBUPROFEN 600 MG TABLET (FP) PO ONE ×2 (20:07→20:09)
== END 2021-07-05 20:46 | disposition home or self-care (01) ==
LOC: JERFT 19:19
DX: M25.562 Pain in left knee (principal); X50.0XXA Overexertion from strenuous movement or load, initial encounter
CPT/HCPCS: 73562-TC-LT-FY; 99283-25

== ENCOUNTER 2021-09-16 19:52 | Emergency (ER) | payer OTHER ==
[2021-09-16 19:57] VITALS: BP 115/79; PULSE 95; TEMP 98; BMI 36.0
[2021-09-16] MEDS ORDERED: SODIUM CHLORIDE 0.9% 500 ML INFUS.BAG IV ONE (20:46)
[2021-09-16 22:19] LABS: BASO % 0.8 % (0-2.0); EOS % 2.8 % (0-4.5); HEMATOCRIT 38.8 % (32.4-45.2); HEMOGLOBIN 13.1 GM/dL (10.7-15.3); LYMPH % 28.3 % (8-40); MCH 27.6 pg (25.7-33.7); MCHC 33.8 g/dl (32.0-36.0); MEAN CELL VOLUME 81.5 fl (80-96); MEAN PLT VOLUME 7.5 fl (7.5-11.1); MONO % 7.7 % (3.8-10.2); NEUT % 60.4 % (42.8-82.8); PLATELET COUNT 286 10^3/uL (134-434); RBC 4.75 M/mm3 (3.60-5.2); RDW 13.6 % (11.6-15.6); WHITE BLOOD COUNT 7.3 K/mm3 (4.0-10.0)
[2021-09-16 22:34] LABS: CALCIUM 8.8 mg/dL (8.5-10.1)
[2021-09-16 22:35] LABS: ALBUMIN 3.8 g/dl (3.4-5.0); BLOOD UREA NITROGEN 11.1 mg/dL (7-18)
[2021-09-16 22:37] LABS: ACTIVATED PTT 32.5 SECONDS (25.2-36.5); INR 1.01 (0.83-1.09); PH,URINE 5.5 (5.0-8.0); PROTHROMBIN TIME (PATIENT) 11.6 SEC (9.7-13.0); URINE APPEARANCE CLEAR; URINE BILIRUBIN NEGATIVE (NEGATIVE); URINE COLOR YELLOW; URINE GLUCOSE (UA) NEGATIVE (NEGATIVE); URINE KETONE NEGATIVE (NEGATIVE); URINE LEUK ESTERASE NEGATIVE (NEGATIVE); URINE NITRITE NEGATIVE (NEGATIVE); URINE PROTEIN NEGATIVE (NEGATIVE); URINE UROBILINOGEN 0.2 mg/dL (0.2-1.0)
[2021-09-16 22:38] LABS: CREATININE 0.8 mg/dL (0.55-1.3)
[2021-09-16 22:39] LABS: BILIRUBIN,TOTAL 0.6 mg/dL (0.2-1); TOT PROT 6.9 g/dl (6.4-8.2)
[2021-09-17] MEDS ORDERED: KETOROLAC TROMETHAMINE 15 MG/ML VIAL IVPUSH ONE (00:05)
[2021-09-17] MEDS ORDERED: KETOROLAC TROMETHAMINE 15 MG/ML VIAL ONE (00:16)
== END 2021-09-17 01:36 | disposition home or self-care (01) ==
LOC: JER 19:52 → JERFT 19:52 → JER 09-17 01:36
PROC: 3E033GC Introduction of Other Therapeutic Substance into Peripheral Vein, Percutaneous Approach (ICD-10-PCS; principal; 2021-09-16)
DX: R10.9 Unspecified abdominal pain (principal)
CPT/HCPCS: 36415; 74176-TC; 80053; 81003; 83690; 84703; 85025; 85610; 85730; 86850; 86900; 86901; 87086; 99285-25

== ENCOUNTER 2021-12-27 19:19 | Emergency (ER) | payer OTHER ==
[2021-12-27 19:42] VITALS: BP 105/70; PULSE 81; RESP 19; TEMP 98.6; BMI 35.4
== END 2021-12-27 21:49 | disposition home or self-care (01) ==
LOC: JERFT 19:19
DX: S70.12XA Contusion of left thigh, initial encounter (principal); W10.9XXA Fall (on) (from) unspecified stairs and steps, initial encounter
CPT/HCPCS: 99281-25

== ENCOUNTER 2022-03-12 20:56 | Emergency (ER) | payer OTHER ==
[2022-03-12 20:59] VITALS: BP 128/84; PULSE 90; RESP 18; TEMP 98; BMI 36.2
[2022-03-12] MEDS ORDERED: IBUPROFEN 600 MG TABLET (FP) PO ONE ×2 (22:31→22:33)
== END 2022-03-12 23:21 | disposition home or self-care (01) ==
LOC: JERFT 20:56
DX: M79.674 Pain in right toe(s) (principal)
CPT/HCPCS: 73660-TC-FY; 99283-25

== ENCOUNTER 2022-03-17 11:15 | Emergency (ER) | payer OTHER ==
[2022-03-17 11:45] VITALS: BMI 35.6
[2022-03-17] MEDS ORDERED: SODIUM CHLORIDE 1,000 ML IV STA (12:47)
[2022-03-17] MEDS ORDERED: ONDANSETRON 4 MG/2 ML VIAL IVPUSH ONE (12:47)
[2022-03-17] MEDS ORDERED: ONDANSETRON 4 MG/2 ML VIAL ONE (12:53)
[2022-03-17 13:22] LABS: HEMATOCRIT 42.8 % (32.4-45.2); HEMOGLOBIN 14.3 GM/dL (10.7-15.3); MCH 27.4 pg (25.7-33.7); MCHC 33.5 g/dl (32.0-36.0); MEAN PLT VOLUME 7.6 fl (7.5-11.1); PLATELET COUNT 246 10^3/uL (134-434); RBC 5.22 M/mm3 (3.60-5.2); RDW 12.9 % (11.6-15.6); WHITE BLOOD COUNT 6.2 K/mm3 (4.0-10.0)
[2022-03-17 13:46] LABS: CALCIUM 9.2 mg/dL (8.5-10.1)
[2022-03-17 13:48] LABS: ALBUMIN 3.9 g/dl (3.4-5.0); BLOOD UREA NITROGEN 10.2 mg/dL (7-18)
[2022-03-17 13:52] LABS: BILIRUBIN,TOTAL 0.9 mg/dL (0.2-1); TOT PROT 7.2 g/dl (6.4-8.2)
[2022-03-17 14:15] LABS: CREATININE 0.9 mg/dL (0.55-1.3)
[2022-03-17 15:41] VITALS: PULSE 86; RESP 18
[2022-03-17 15:55] LABS: EPI CELLS >36 /uL (0-25.1); HYALINE CASTS 1 /uL (0-3.1); PH,URINE 5.5 (5.0-8.0); URINE APPEARANCE CLOUDY; URINE BACTERIA 6175 /uL (0-1359); URINE BILIRUBIN NEGATIVE (NEGATIVE); URINE COLOR YELLOW; URINE GLUCOSE (UA) NEGATIVE (NEGATIVE); URINE KETONE NEGATIVE (NEGATIVE); URINE LEUK ESTERASE 1+ (NEGATIVE); URINE NITRITE NEGATIVE (NEGATIVE); URINE PROTEIN NEGATIVE (NEGATIVE); URINE UROBILINOGEN 0.2 mg/dL (0.2-1.0); URINE WBC 70 /uL (0-25.8)
[2022-03-17 16:03] LABS: URINE RBC 177 /uL (0-23.9)
[2022-03-17 16:37] VITALS: BP 100/72; TEMP 98.9
== END 2022-03-17 16:51 | disposition home or self-care (01) ==
LOC: JER 11:15
PROC: 3E033GC Introduction of Other Therapeutic Substance into Peripheral Vein, Percutaneous Approach (ICD-10-PCS; principal; 2022-03-17)
PROC: 3E0337Z Introduction of Electrolytic and Water Balance Substance into Peripheral Vein, Percutaneous Approach (ICD-10-PCS; 2022-03-17)
DX: N39.0 Urinary tract infection, site not specified (principal); J09.X2 Influenza due to identified novel influenza A virus with other respiratory manifestations; R05.1 Acute cough; R09.81 Nasal congestion
CPT/HCPCS: 0241U-QW; 36415; 74177-TC; 80053; 81003; 84703; 85027; 87086; 99285-25; Q9967

== ENCOUNTER 2022-12-21 13:51 | Emergency (ER) | payer OTHER ==
[2022-12-21 14:05] VITALS: TEMP 98.4; BMI 32.9
[2022-12-21] MEDS ORDERED: FAMOTIDINE 20 MG/50 ML IVPB 20 MG/50 ML MG IVPB ONE (14:25)
[2022-12-21] MEDS ORDERED: ACETAMINOPHEN 1000 MG/100 ML BAG IVPB ONE (14:25)
[2022-12-21] MEDS ORDERED: ONDANSETRON 4 MG/2 ML VIAL IVPUSH ONE (14:25)
[2022-12-21] MEDS ORDERED: ACETAMINOPHEN INJECTION 100 ML IVPB ONE (14:57)
[2022-12-21] MEDS ORDERED: ONDANSETRON 4 MG/2 ML VIAL ONE (14:57)
[2022-12-21] MEDS ORDERED: FAMOTIDINE 10 MG/ML VIAL IVPB ONE (14:57)
[2022-12-21 14:59] LABS: BASO % 0.7 % (0-2.0); EOS % 1.3 % (0-4.5); HEMATOCRIT 38.7 % (32.4-45.2); HEMOGLOBIN 13.3 GM/dL (10.7-15.3); LYMPH % 21.1 % (8-40); MCH 27.5 pg (25.7-33.7); MCHC 34.4 g/dl (32.0-36.0); MEAN CELL VOLUME 80.1 fl (80-96); MEAN PLT VOLUME 7.2 fl (7.5-11.1); MONO % 6.9 % (3.8-10.2); PLATELET COUNT 318 10^3/uL (134-434); RBC 4.83 M/mm3 (3.60-5.2); RDW 12.9 % (11.6-15.6); URINE APPEARANCE CLEAR; URINE BILIRUBIN NEGATIVE (NEGATIVE); URINE COLOR YELLOW; URINE GLUCOSE (UA) NEGATIVE (NEGATIVE); URINE KETONE NEGATIVE (NEGATIVE); URINE LEUK ESTERASE NEGATIVE (NEGATIVE); URINE NITRITE NEGATIVE (NEGATIVE); URINE PROTEIN NEGATIVE (NEGATIVE); URINE UROBILINOGEN 0.2 mg/dL (0.2-1.0)
[2022-12-21 15:20] LABS: POTASSIUM 4.1 mmol/L (3.5-5.1)
[2022-12-21 15:22] LABS: BLOOD UREA NITROGEN 14.8 mg/dL (7-18); MAGNESIUM 2.2 mg/dL (1.8-2.4)
[2022-12-21 15:28] LABS: CREATININE 0.9 mg/dL (0.55-1.3)
[2022-12-21 15:29] LABS: TOT PROT 6.8 g/dl (6.4-8.2)
[2022-12-21] MEDS ORDERED: KETOROLAC TROMETHAMINE 15 MG/ML VIAL IVPUSH ONE (16:54)
[2022-12-21] MEDS ORDERED: SODIUM CHLORIDE 0.9% 500 ML INFUS.BAG IV ONE (16:54)
[2022-12-21] MEDS ORDERED: KETOROLAC TROMETHAMINE 15 MG/ML VIAL ONE (17:18)
[2022-12-21 17:40] VITALS: BP 105/73; PULSE 74; RESP 16
== END 2022-12-21 18:00 | disposition home or self-care (01) ==
LOC: JER 13:51
PROC: 3E033NZ Introduction of Analgesics, Hypnotics, Sedatives into Peripheral Vein, Percutaneous Approach (ICD-10-PCS; principal; 2022-12-21)
PROC: 3E0333Z Introduction of Anti-inflammatory into Peripheral Vein, Percutaneous Approach (ICD-10-PCS; 2022-12-21)
PROC: 3E033GC Introduction of Other Therapeutic Substance into Peripheral Vein, Percutaneous Approach (ICD-10-PCS; 2022-12-21)
PROC: 3E033GC Introduction of Other Therapeutic Substance into Peripheral Vein, Percutaneous Approach (ICD-10-PCS; 2022-12-21)
DX: R10.11 Right upper quadrant pain (principal); R11.0 Nausea; R53.1 Weakness; R20.0 Anesthesia of skin; N83.201 Unspecified ovarian cyst, right side; Z20.822 Contact with and (suspected) exposure to COVID-19
CPT/HCPCS: 0241U-QW; 36415; 74177-TC; 80053; 81003; 82550; 83690; 83735; 84484; 84703; 85025; 87086; 93005; 93010; 99285-25; Q9967

== ENCOUNTER 2023-01-18 22:11 | Emergency (ER) | payer OTHER ==
[2023-01-18 22:22] VITALS: BP 117/54; PULSE 84; RESP 18; TEMP 98.2; BMI 38.4
[2023-01-19] MEDS ORDERED: LIDOCAINE 4% PATCH TP ONE ×2 (00:49→00:54)
[2023-01-19] MEDS ORDERED: IBUPROFEN 600 MG TABLET (FP) PO ONE (00:49)
[2023-01-19] MEDS ORDERED: LIDOCAINE PATCH REMOVAL MC SCH ×2 (22:00)
== END 2023-01-19 01:06 | disposition home or self-care (01) ==
LOC: JERFT 22:11 → JER 22:11
DX: M54.2 Cervicalgia (principal); M79.10 Myalgia, unspecified site; R51.9 Headache, unspecified; S00.81XA Abrasion of other part of head, initial encounter; V59.50XA Passenger in pick-up truck or van injured in collision with unspecified motor vehicles in traffic accident, initial encounter; Y92.410 Unspecified street and highway as the place of occurrence of the external cause
CPT/HCPCS: 99283-25

== ENCOUNTER 2023-12-16 20:21 | Emergency (ER) | payer OTHER ==
[2023-12-16 20:25] VITALS: BP 135/80; PULSE 89; RESP 18; TEMP 98.6; BMI 37.5
[2023-12-16] MEDS ORDERED: ACETAMINOPHEN INJECTION 100 ML ONE (21:30)
[2023-12-16] MEDS ORDERED: LIDOCAINE 5% TOPICAL PATCH ONE (21:31)
[2023-12-16] MEDS: ACETAMINOPHEN 1000 MG/100 ML BAG IVPB ONE (22:02)
[2023-12-16] MEDS: LIDOCAINE 5% TOPICAL PATCH TP ONE (22:04)
[2023-12-16] MEDS: KETOROLAC TROMETHAMINE 15 MG/ML VIAL IVPUSH ONE (22:04)
[2023-12-16] MEDS: LIDOCAINE PATCH REMOVAL MC SCH (22:04)
[2023-12-16 22:23] LABS: BASO % 0.8 % (0-2.0); EOS % 1.4 % (0-4.5); HEMATOCRIT 37.7 % (32.4-45.2); HEMOGLOBIN 12.9 GM/dL (10.7-15.3); LYMPH % 26.1 % (8-40); MCH 28.2 pg (25.7-33.7); MCHC 34.2 g/dl (32.0-36.0); MEAN CELL VOLUME 82.5 fl (80-96); MEAN PLT VOLUME 7.7 fl (7.5-11.1); MONO % 6.1 % (3.8-10.2); NEUT % 65.6 % (42.8-82.8); PLATELET COUNT 311 10^3/uL (134-434); RBC 4.57 M/mm3 (3.60-5.2); RDW 13.4 % (11.6-15.6); WHITE BLOOD COUNT 10.6 K/mm3 (4.0-10.0)
[2023-12-16 22:36] LABS: INR 0.93 (0.83-1.09); PROTHROMBIN TIME (PATIENT) 10.5 SEC (9.7-13.0)
[2023-12-16 22:39] LABS: ACTIVATED PTT 28.1 SECONDS (25.2-36.5)
[2023-12-16 22:45] LABS: CALCIUM 9.4 mg/dL (8.5-10.1)
[2023-12-16 22:46] LABS: ALBUMIN 3.7 g/dl (3.4-5.0); BLOOD UREA NITROGEN 12.7 mg/dL (7-18); MAGNESIUM 2.3 mg/dL (1.8-2.4)
[2023-12-16 22:49] LABS: CREATININE 0.8 mg/dL (0.55-1.3)
[2023-12-16 22:51] LABS: BILIRUBIN,TOTAL 0.3 mg/dL (0.2-1)
[2023-12-16] MEDS: METHOCARBAMOL 500 MG TABLET PO ONE (23:23)
== END 2023-12-16 23:24 | disposition home or self-care (01) ==
LOC: JER 20:21
PROC: 3E033NZ Introduction of Analgesics, Hypnotics, Sedatives into Peripheral Vein, Percutaneous Approach (ICD-10-PCS; principal; 2023-12-16)
DX: M25.512 Pain in left shoulder (principal); R07.89 Other chest pain; M79.602 Pain in left arm; R06.02 Shortness of breath; R20.2 Paresthesia of skin; M54.2 Cervicalgia
CPT/HCPCS: 36415; 71046-TC-FY; 73030-TC-LT-FY; 80053; 83735; 84484; 85025; 85610; 85730; 93005; 93010; 99285-25; J0131

== ENCOUNTER 2024-02-19 10:54 | Emergency (ER) | payer OTHER ==
[2024-02-19 11:11] VITALS: TEMP 98.7; BMI 36.6
[2024-02-19 12:29] LABS: BASO % 0.8 % (0-2.0); EOS % 1.6 % (0-4.5); HEMATOCRIT 37.5 % (32.4-45.2); HEMOGLOBIN 12.5 GM/dL (10.7-15.3); LYMPH % 17.4 % (8-40); MCH 27.3 pg (25.7-33.7); MCHC 33.3 g/dl (32.0-36.0); MEAN CELL VOLUME 81.8 fl (80-96); MEAN PLT VOLUME 7.2 fl (7.5-11.1); MONO % 5.7 % (3.8-10.2); NEUT % 74.5 % (42.8-82.8); PLATELET COUNT 294 10^3/uL (134-434); RBC 4.58 M/mm3 (3.60-5.2); RDW 13.2 % (11.6-15.6)
[2024-02-19 12:34] LABS: HCG,QUALITATIVE URINE Negative
[2024-02-19 12:36] LABS: URINE APPEARANCE CLEAR; URINE BILIRUBIN NEGATIVE (NEGATIVE); URINE COLOR YELLOW; URINE GLUCOSE (UA) NEGATIVE (NEGATIVE); URINE KETONE NEGATIVE (NEGATIVE); URINE LEUK ESTERASE NEGATIVE (NEGATIVE); URINE NITRITE NEGATIVE (NEGATIVE); URINE PROTEIN NEGATIVE (NEGATIVE)
[2024-02-19 12:45] LABS: POTASSIUM 3.9 mmol/L (3.5-5.1)
[2024-02-19 12:46] LABS: BLOOD UREA NITROGEN 9.1 mg/dL (7-18); CALCIUM 9.9 mg/dL (8.5-10.1)
[2024-02-19 12:47] LABS: ALBUMIN 3.6 g/dl (3.4-5.0)
[2024-02-19 12:50] LABS: CREATININE 0.8 mg/dL (0.55-1.3)
[2024-02-19 12:52] LABS: BILIRUBIN,TOTAL 0.7 mg/dL (0.2-1); TOT PROT 6.8 g/dl (6.4-8.2)
[2024-02-19 17:06] VITALS: BP 114/65
[2024-02-19 17:26] VITALS: PULSE 90; RESP 18
== END 2024-02-19 17:27 | disposition home or self-care (01) ==
LOC: JER 10:54
DX: K76.0 Fatty (change of) liver, not elsewhere classified (principal); R16.1 Splenomegaly, not elsewhere classified; N83.201 Unspecified ovarian cyst, right side; N83.202 Unspecified ovarian cyst, left side; R10.12 Left upper quadrant pain; R10.2 Pelvic and perineal pain; R11.0 Nausea
CPT/HCPCS: 36415; 74177-TC; 76775-TC; 76830-TC; 80053; 81003; 83690; 84703; 85025; 86140; 87086; 99285-25; Q9967

== ENCOUNTER 2024-03-16 09:19 | Emergency (ER) | payer OTHER ==
[2024-03-16] MEDS ORDERED: TETRACAINE 0.5% OPHTH SOLN 2 ML BOTTLE ONE (09:32)
[2024-03-16] MEDS ORDERED: FLUORESCEIN NA 1 EA STRIP ONE (09:32)
[2024-03-16] MEDS ORDERED: ACETAMINOPHEN 500 MG TABLET (FP) ONE (09:34)
[2024-03-16] MEDS: ACETAMINOPHEN 500 MG TABLET (FP) PO ONE (09:51)
[2024-03-16] MEDS: TETRACAINE 0.5% OPHTH SOLN 2 ML BOTTLE OS ONE (09:54)
[2024-03-16] MEDS: FLUORESCEIN NA 1 EA STRIP OS ONE (09:54)
[2024-03-16 09:58] VITALS: BP 121/77; PULSE 94; RESP 20; TEMP 97.7; BMI 35.6
== END 2024-03-16 12:58 | disposition home or self-care (01) ==
LOC: JERFT 09:19
DX: S05.02XA Injury of conjunctiva and corneal abrasion without foreign body, left eye, initial encounter (principal); Y04.0XXA Assault by unarmed brawl or fight, initial encounter
CPT/HCPCS: 70486-TC; 84703; 99284-25

== ENCOUNTER 2024-03-27 04:24 | Day surgery (SDC) | payer OTHER ==
[2024-03-27 07:48] VITALS: BMI 38.7
[2024-03-27 09:00] VITALS: TEMP 97.6
[2024-03-27 09:31] VITALS: BP 103/55; PULSE 69; RESP 15
== END 2024-03-27 09:43 | disposition home or self-care (01) ==
LOC: JASU-ENDO 04:24
PROVIDERS: ATTEND Internal Medicine Gastroenterology
PROC: 0DB98ZX Excision of Duodenum, Via Natural or Artificial Opening Endoscopic, Diagnostic (ICD-10-PCS; 2024-03-27)
PROC: 0DB78ZX Excision of Stomach, Pylorus, Via Natural or Artificial Opening Endoscopic, Diagnostic (ICD-10-PCS; 2024-03-27)
PROC: 0DB68ZX Excision of Stomach, Via Natural or Artificial Opening Endoscopic, Diagnostic (ICD-10-PCS; 2024-03-27)
PROC: 0DBE8ZX Excision of Large Intestine, Via Natural or Artificial Opening Endoscopic, Diagnostic (ICD-10-PCS; principal; 2024-03-27 08:00)
DX: R19.7 Diarrhea, unspecified (principal); K29.50 Unspecified chronic gastritis without bleeding
CPT/HCPCS: 88305-TC; 88342-TC